=== PATIENT | male | born 1935 | race African-American/Black ===

== ENCOUNTER 2017-05-08 03:42 | Inpatient (IN) ==
[2017-05-08 04:20] LABS: Hematocrit 33.9 VOL% (42.0-52.0); Hemoglobin 10.7 GM/DL (14.0-18.0); Immature Granulocytes % 0.7 %; Immature Granulocytes Absolute 0.04 #; Lymphocytes # 0.4 10*3/uL (1.4-4.0); Lymphocytes % 6.7 % (21.2-54.2); Mean Corpuscular HGB Conc 31.6 GM/DL (32-36); Mean Corpuscular Hemoglobin 24 PG (27-34); Mean Platelet Volume 10.9 FL (9.6-12.0); Monocytes # 0.5 10*3/uL (0.11-0.8); Monocytes % 9.1 % (1.7-12.7); NRBC # 0.05 10*3/uL; Neutrophils # 4.7 10*3/uL (1.4-7.4); Neutrophils % 83.5 % (38.7-73.9); Platelet Count 66 T/CUMM (130-400); Red Blood Count 4.46 MC/CUMM (3.8-5.5); Red Cell Distribution Width 16.3 % (9.3-17.3); White Blood Count 5.6 T/CUMM (4-12)
[2017-05-08 04:31] LABS: INR 1.4; PT Patient Result 14.6 SECS; Partial Thromboplastin Time 27.5 SECS (0-40)
[2017-05-08 04:37] LABS: Albumin 3.6 G/DL (3.4-5.0); Bilirubin,Total 1.2 MG/DL (0.2-1.0); CKMB % 3.2 %; Calcium 8.6 MG/DL (8.5-10.1); Osmolality,Calculated 257.4 MOS/KG (273-304); Potassium 4.5 MMOL/L (3.5-5.1); Total Protein 7.9 G/DL (6.4-8.3)
[2017-05-08 04:39] LABS: Troponin I Only 0.046 NG/ML (0.00-0.045)
[2017-05-08 04:43] LABS: Band Neutrophils 5 % (0-10); Lymphocytes 6 % (20-55); Nucleated Red Blood Cells 2 (0-5); Segmented Neutrophils 83 % (50-85); Total Cells Counted 100
[2017-05-08 04:44] LABS: Anisocytosis 1+; Poikilocytosis 1+; Polychromasia 1+
[2017-05-08] MEDS ORDERED: FUROSEMIDE 40 MG/4 ML VIAL IV STA (05:12)
[2017-05-08] MEDS ORDERED: ASPIRIN 325 MG TABLET PO STA (05:12)
[2017-05-08] MEDS ORDERED: ASPIRIN 325 MG TABLET ONE (05:30)
[2017-05-08] MEDS ORDERED: FUROSEMIDE 40 MG/4 ML VIAL ONE (05:30)
[2017-05-08] MEDS ORDERED: NITROGLYCERIN SL 0.4 MG TABLET SL PRN (08:16)
[2017-05-08] MEDS ORDERED: MORPHINE 2 MG/1 ML SYRINGE IV PRN (08:16)
[2017-05-08] MEDS ORDERED: ONDANSETRON 4 MG/2 ML VIAL IV PRN (08:16)
[2017-05-08] MEDS ORDERED: ACETAMINOPHEN 325 MG TABLET PO PRN (08:16)
[2017-05-08 09:10] LABS: Magnesium 2.2 MG/DL (1.8-2.4); Risk Ratio 1.63
[2017-05-08] MEDS: LOSARTAN 50 MG TABLET PO SCH (09:53)
[2017-05-08] MEDS: DOCUSATE SODIUM 100 MG CAPSULE PO SCH ×2 (09:53→22:20)
[2017-05-08] MEDS: ASPIRIN EC 81 MG TABLET PO SCH (09:53)
[2017-05-08] MEDS: TAMSULOSIN 0.4 MG CAPSULE PO SCH (09:54)
[2017-05-08] MEDS: PANTOPRAZOLE 40 MG TABLET PO SCH (09:54)
[2017-05-08] MEDS: PRAVASTATIN 20 MG TABLET PO SCH (09:54)
[2017-05-08] MEDS: NITROGLYCERIN 2% OINT 1 INCH/GM PACK TOP SCH ×2 (09:59→22:20)
[2017-05-08] MEDS: FUROSEMIDE 40 MG/4 ML VIAL IV SCH ×2 (10:00→17:43)
[2017-05-08 14:00] LABS: Calcium 8.5 MG/DL (8.5-10.1); Osmolality,Calculated 262.9 MOS/KG (273-304); Potassium 3.8 MMOL/L (3.5-5.1)
[2017-05-08] MEDS ORDERED: INFLUENZA VIRUS VACCINE 0.5 ML SYRINGE IM ONE (15:29)
[2017-05-08] MEDS ORDERED: LATANOPROST 0.005% OPH SOLN 2.5 ML BOTTLE BOTH EYES SCH (21:00)
[2017-05-09 05:22] LABS: Basophils % 0.2 % (0.0-0.8); Eosinophils # 0.1 10*3/uL (0.0-0.87); Eosinophils % 1.3 % (0.00-10.9); Hematocrit 33.6 VOL% (42.0-52.0); Hemoglobin 10.6 GM/DL (14.0-18.0); Immature Granulocytes % 0.6 %; Immature Granulocytes Absolute 0.03 #; Lymphocytes # 0.8 10*3/uL (1.4-4.0); Lymphocytes % 16.4 % (21.2-54.2); Mean Corpuscular HGB Conc 31.5 GM/DL (32-36); Mean Corpuscular Hemoglobin 24 PG (27-34); Mean Platelet Volume 10.3 FL (9.6-12.0); Monocytes % 19.9 % (1.7-12.7); NRBC # 0.06 10*3/uL; Neutrophils # 2.9 10*3/uL (1.4-7.4); Neutrophils % 61.6 % (38.7-73.9); Red Blood Count 4.42 MC/CUMM (3.8-5.5); Red Cell Distribution Width 16.2 % (9.3-17.3); White Blood Count 4.8 T/CUMM (4-12)
[2017-05-09 05:29] LABS: Platelet Count 78 T/CUMM (130-400)
[2017-05-09 05:50] LABS: Albumin 3.2 G/DL (3.4-5.0); Bilirubin,Direct 0.4 MG/DL (0.0-0.20); Bilirubin,Indirect 0.7 MG/DL (0.0-1.0); Bilirubin,Total 1.1 MG/DL (0.2-1.0); Calcium 7.8 MG/DL (8.5-10.1); Magnesium 2.1 MG/DL (1.8-2.4); Osmolality,Calculated 262.8 MOS/KG (273-304); Potassium 3.6 MMOL/L (3.5-5.1); Total Protein 7.2 G/DL (6.4-8.3)
[2017-05-09 06:01] LABS: Eosinophils 3 % (0-10); Lymphocytes 14 % (20-55); Myelocytes 1 %; Nucleated Red Blood Cells 3 (0-5); Segmented Neutrophils 70 % (50-85); Total Cells Counted 100
[2017-05-09 06:03] LABS: Hypochromasia 1+; Platelet Estimate Decreased; Polychromasia Few; Target Cells Few
[2017-05-09] MEDS: ASPIRIN EC 81 MG TABLET PO SCH (09:06)
[2017-05-09] MEDS: PRAVASTATIN 20 MG TABLET PO SCH (09:06)
[2017-05-09] MEDS: LOSARTAN 50 MG TABLET PO SCH (09:06)
[2017-05-09] MEDS: PANTOPRAZOLE 40 MG TABLET PO SCH (09:06)
[2017-05-09] MEDS: TAMSULOSIN 0.4 MG CAPSULE PO SCH (09:06)
[2017-05-09] MEDS: DOCUSATE SODIUM 100 MG CAPSULE PO SCH (09:06)
[2017-05-09] MEDS: FUROSEMIDE 40 MG/4 ML VIAL IV SCH ×2 (09:08→16:10)
[2017-05-09] MEDS: NITROGLYCERIN 2% OINT 1 INCH/GM PACK TOP SCH (09:10)
[2017-05-09 16:57] VITALS: BP 114/67
== END 2017-05-09 17:30 | disposition home or self-care (01) | DRG 293 ==
LOC: N.ED 03:42 → N.EDINP 06:04 → SUATTDRO 06:04 → N.3E 06:18
PROVIDERS: ADMIT Internal Medicine; ATTEND Internal Medicine

== ENCOUNTER 2018-02-14 07:17 | Observation (INO) ==
[2018-02-14] MEDS ORDERED: FUROSEMIDE 100 MG/10 ML VIAL IV STA (07:50)
[2018-02-14 08:12] LABS: Eosinophils % 0.4 % (0.00-10.9); Hemoglobin 10.3 GM/DL (14.0-18.0); Immature Granulocytes % 0.4 %; Immature Granulocytes Absolute 0.01 #; Lymphocytes # 0.3 10*3/uL (1.4-4.0); Lymphocytes % 10.6 % (21.2-54.2); Mean Corpuscular HGB Conc 31.2 GM/DL (32-36); Mean Corpuscular Hemoglobin 24 PG (27-34); Mean Corpuscular Volume 77.3 FL (87-102); Mean Platelet Volume 10.7 FL (9.6-12.0); Monocytes # 0.3 10*3/uL (0.11-0.8); Neutrophils # 2.2 10*3/uL (1.4-7.4); Neutrophils % 76.6 % (38.7-73.9); Red Blood Count 4.27 MC/CUMM (3.8-5.5); Red Cell Distribution Width 18.2 % (9.3-17.3); White Blood Count 2.8 T/CUMM (4-12)
[2018-02-14 08:15] LABS: Platelet Count 84 T/CUMM (130-400)
[2018-02-14 08:20] LABS: INR 1.2; PT Patient Result 12.6 SECS; Partial Thromboplastin Time 30.1 SECS (0-40)
[2018-02-14 08:30] LABS: Hypochromasia 1+; Ovalocytes Slight; Platelet Estimate Decreased
[2018-02-14 08:45] LABS: Albumin 3.5 G/DL (3.4-5.0); Calcium 8.6 MG/DL (8.5-10.1); Osmolality,Calculated 285.4 MOS/KG (273-304); Potassium 4.3 MMOL/L (3.5-5.1); Total Protein 7.1 G/DL (6.4-8.3)
[2018-02-14 08:52] LABS: Apearance,Urine CLEAR (Clear); Bacteria,Urine Occasional /HPF (Few); Bilirubin,Urine Negative (Negative); Blood, Urine Negative (Negative); Glucose,Urine (UA) Negative (Negative); Ketones,Urine Negative (Negative); Mucus,Urine Occasional /LPF (Occasional); Nitrite,Urine Negative (Negative); Protein,Urine Negative; RBC,Urine <1 /HPF (0-4); Urine Color Yellow (Yellow); Urine Urobilinogen < 2.0 EU/DL (0.2-1.0); WBC,Urine 14 /HPF (0-6)
[2018-02-14] MEDS ORDERED: ACETAMINOPHEN 325 MG TABLET PO PRN (12:20)
[2018-02-14] MEDS ORDERED: ONDANSETRON 4 MG/2 ML VIAL IV PRN (12:20)
[2018-02-14] MEDS ORDERED: DOCUSATE SODIUM 100 MG CAPSULE PO PRN (12:20)
[2018-02-14] MEDS: ENOXAPARIN 40 MG/0.4 ML SYRINGE SUBCUT SCH (12:36)
[2018-02-14] MEDS ORDERED: FUROSEMIDE 40 MG/4 ML VIAL IV SCH (16:00)
[2018-02-14] MEDS: FUROSEMIDE 40 MG/4 ML VIAL IV SCH (17:07)
[2018-02-14] MEDS: POTASSIUM CHLORIDE 20 MEQ TABLET PO SCH (21:23)
[2018-02-14] MEDS: NORTRIPTYLINE 10 MG CAPSULE PO SCH (21:23)
[2018-02-14] MEDS: LATANOPROST 0.005% OPH SOLN 2.5 ML BOTTLE BOTH EYES SCH (21:24)
[2018-02-15 03:50] LABS: Basophils % 0.7 % (0.0-0.8); Eosinophils # 0.1 10*3/uL (0.0-0.87); Eosinophils % 2.3 % (0.00-10.9); Hematocrit 34.1 VOL% (42.0-52.0); Hemoglobin 10.1 GM/DL (14.0-18.0); Immature Granulocytes % 0.3 %; Immature Granulocytes Absolute 0.01 #; Lymphocytes # 0.5 10*3/uL (1.4-4.0); Lymphocytes % 17.6 % (21.2-54.2); Mean Corpuscular HGB Conc 29.6 GM/DL (32-36); Mean Corpuscular Hemoglobin 24 PG (27-34); Mean Corpuscular Volume 79.9 FL (87-102); Mean Platelet Volume 10.6 FL (9.6-12.0); Monocytes # 0.5 10*3/uL (0.11-0.8); Monocytes % 16.6 % (1.7-12.7); Neutrophils # 1.9 10*3/uL (1.4-7.4); Neutrophils % 62.5 % (38.7-73.9); Platelet Count 72 T/CUMM (130-400); Red Blood Count 4.27 MC/CUMM (3.8-5.5); Red Cell Distribution Width 18.1 % (9.3-17.3); White Blood Count 3.1 T/CUMM (4-12)
[2018-02-15 04:23] LABS: Calcium 8.7 MG/DL (8.5-10.1); Osmolality,Calculated 285.3 MOS/KG (273-304); Potassium 4.2 MMOL/L (3.5-5.1); Thyroid Stimulating Hormone 0.488 uIU/ml (0.358-3.74)
[2018-02-15 04:35] LABS: Eosinophils 2 % (0-10); Lymphocytes 19 % (20-55); Platelet Estimate Decreased; Polychromasia Few; Segmented Neutrophils 64 % (50-85); Total Cells Counted 100
[2018-02-15] MEDS: PRAVASTATIN 20 MG TABLET PO SCH (08:34)
[2018-02-15] MEDS: TAMSULOSIN 0.4 MG CAPSULE PO SCH (08:34)
[2018-02-15] MEDS: CHOLECALCIFEROL 1,000 UNIT TABLET PO SCH (08:34)
[2018-02-15] MEDS: ASPIRIN EC 81 MG TABLET PO SCH (08:34)
[2018-02-15] MEDS: LOSARTAN 50 MG TABLET PO SCH (08:34)
[2018-02-15] MEDS: POTASSIUM CHLORIDE 20 MEQ TABLET PO SCH ×2 (08:34→21:17)
[2018-02-15] MEDS: DICYCLOMINE 10 MG CAPSULE PO SCH (08:35)
[2018-02-15] MEDS: PANTOPRAZOLE 40 MG TABLET PO SCH (08:35)
[2018-02-15] MEDS: FUROSEMIDE 40 MG/4 ML VIAL IV SCH ×2 (08:38→18:00)
[2018-02-15] MEDS: cefTRIAXone 1,000 MG in SYRINGE 1 EACH IV SCH (13:18)
[2018-02-15] MEDS: ENOXAPARIN 40 MG/0.4 ML SYRINGE SUBCUT SCH (13:35)
[2018-02-15] MEDS: LATANOPROST 0.005% OPH SOLN 2.5 ML BOTTLE BOTH EYES SCH (21:17)
[2018-02-15] MEDS: NORTRIPTYLINE 10 MG CAPSULE PO SCH (21:17)
[2018-02-16 03:06] LABS: Eosinophils # 0.2 10*3/uL (0.0-0.87); Eosinophils % 4.9 % (0.00-10.9); Hematocrit 34.7 VOL% (42.0-52.0); Hemoglobin 10.5 GM/DL (14.0-18.0); Immature Granulocytes % 0.3 %; Immature Granulocytes Absolute 0.01 #; Lymphocytes # 0.8 10*3/uL (1.4-4.0); Lymphocytes % 25.3 % (21.2-54.2); Mean Corpuscular HGB Conc 30.3 GM/DL (32-36); Mean Corpuscular Hemoglobin 24 PG (27-34); Mean Corpuscular Volume 78.7 FL (87-102); Mean Platelet Volume 11.2 FL (9.6-12.0); Monocytes # 0.5 10*3/uL (0.11-0.8); Monocytes % 16.8 % (1.7-12.7); Neutrophils # 1.6 10*3/uL (1.4-7.4); Neutrophils % 51.7 % (38.7-73.9); Platelet Count 94 T/CUMM (130-400); Red Blood Count 4.41 MC/CUMM (3.8-5.5); Red Cell Distribution Width 17.8 % (9.3-17.3)
[2018-02-16 03:34] LABS: Calcium 8.8 MG/DL (8.5-10.1); Osmolality,Calculated 280.5 MOS/KG (273-304); Potassium 4.2 MMOL/L (3.5-5.1)
[2018-02-16 03:49] LABS: Anisocytosis 2+; Band Neutrophils 5 % (0-10); Eosinophils 5 % (0-10); Hypochromasia 2+; Lymphocytes 26 % (20-55); Macrocytosis 1+; Microcytosis 1+; Ovalocytes 2+; Platelet Estimate Decreased; Polychromasia 1+; Segmented Neutrophils 47 % (50-85); Target Cells Few; Total Cells Counted 100
[2018-02-16] MEDS: FUROSEMIDE 40 MG/4 ML VIAL IV SCH (08:38)
[2018-02-16] MEDS: CHOLECALCIFEROL 1,000 UNIT TABLET PO SCH (09:56)
[2018-02-16] MEDS: FUROSEMIDE 40 MG TABLET PO SCH ×2 (09:57→16:04)
[2018-02-16] MEDS: LOSARTAN 50 MG TABLET PO SCH (09:57)
[2018-02-16] MEDS: SPIRONOLACTONE 25 MG TABLET PO SCH (09:58)
[2018-02-16] MEDS: PRAVASTATIN 20 MG TABLET PO SCH (09:58)
[2018-02-16] MEDS: TAMSULOSIN 0.4 MG CAPSULE PO SCH (09:58)
[2018-02-16] MEDS: ASPIRIN EC 81 MG TABLET PO SCH (09:59)
[2018-02-16] MEDS: POTASSIUM CHLORIDE 20 MEQ TABLET PO SCH ×2 (09:59→20:56)
[2018-02-16] MEDS: DICYCLOMINE 10 MG CAPSULE PO SCH (09:59)
[2018-02-16] MEDS: PANTOPRAZOLE 40 MG TABLET PO SCH (10:01)
[2018-02-16] MEDS ORDERED: BISACODYL 10 MG SUPP RECTAL ONE (10:19)
[2018-02-16] MEDS: POLYETHYLENE GLYCOL POWDER 17 GM PACK PO SCH (10:53)
[2018-02-16] MEDS: ENOXAPARIN 40 MG/0.4 ML SYRINGE SUBCUT SCH (12:04)
[2018-02-16] MEDS: cefTRIAXone 1,000 MG in SYRINGE 1 EACH IV SCH (12:04)
[2018-02-16] MEDS ORDERED: SODIUM PHOSPHATE ENEMA 133 ML BOTTLE RECTAL ONE (16:30)
[2018-02-16] MEDS: LATANOPROST 0.005% OPH SOLN 2.5 ML BOTTLE BOTH EYES SCH (20:56)
[2018-02-16] MEDS: NORTRIPTYLINE 10 MG CAPSULE PO SCH (20:56)
[2018-02-17 07:02] LABS: Basophils % 0.7 % (0.0-0.8); Eosinophils # 0.1 10*3/uL (0.0-0.87); Eosinophils % 4.8 % (0.00-10.9); Hematocrit 35.4 VOL% (42.0-52.0); Hemoglobin 10.7 GM/DL (14.0-18.0); Immature Granulocytes % 0.3 %; Immature Granulocytes Absolute 0.01 #; Lymphocytes # 0.8 10*3/uL (1.4-4.0); Lymphocytes % 27.7 % (21.2-54.2); Mean Corpuscular HGB Conc 30.2 GM/DL (32-36); Mean Corpuscular Hemoglobin 24 PG (27-34); Mean Corpuscular Volume 79.6 FL (87-102); Mean Platelet Volume 10.3 FL (9.6-12.0); Monocytes # 0.5 10*3/uL (0.11-0.8); Monocytes % 16.8 % (1.7-12.7); Neutrophils # 1.5 10*3/uL (1.4-7.4); Neutrophils % 49.7 % (38.7-73.9); Platelet Count 91 T/CUMM (130-400); Red Blood Count 4.45 MC/CUMM (3.8-5.5); Red Cell Distribution Width 17.5 % (9.3-17.3); White Blood Count 2.9 T/CUMM (4-12)
[2018-02-17 07:25] LABS: Atypical Lymphocytes Few; Eosinophils 4 % (0-10); Lymphocytes 25 % (20-55); Segmented Neutrophils 55 % (50-85); Total Cells Counted 100
[2018-02-17 07:26] LABS: Calcium 8.4 MG/DL (8.5-10.1); Hypochromasia 1+; Microcytosis 1+; Osmolality,Calculated 281.4 MOS/KG (273-304); Ovalocytes Slight; Platelet Estimate Decreased; Polychromasia Slight; Potassium 4.4 MMOL/L (3.5-5.1); Target Cells Slight
[2018-02-17 08:09] VITALS: BP 133/82
[2018-02-17] MEDS: DICYCLOMINE 10 MG CAPSULE PO SCH (09:52)
[2018-02-17] MEDS: PANTOPRAZOLE 40 MG TABLET PO SCH (09:52)
[2018-02-17] MEDS: FUROSEMIDE 40 MG TABLET PO SCH (09:52)
[2018-02-17] MEDS: POTASSIUM CHLORIDE 20 MEQ TABLET PO SCH (09:52)
[2018-02-17] MEDS: SPIRONOLACTONE 25 MG TABLET PO SCH (09:52)
[2018-02-17] MEDS: LOSARTAN 50 MG TABLET PO SCH (09:53)
[2018-02-17] MEDS: TAMSULOSIN 0.4 MG CAPSULE PO SCH (09:53)
[2018-02-17] MEDS: PRAVASTATIN 20 MG TABLET PO SCH (09:53)
[2018-02-17] MEDS: CHOLECALCIFEROL 1,000 UNIT TABLET PO SCH (09:53)
[2018-02-17] MEDS: ASPIRIN EC 81 MG TABLET PO SCH (09:53)
[2018-02-17] MEDS: POLYETHYLENE GLYCOL POWDER 17 GM PACK PO SCH (09:53)
[2018-02-17] MEDS: cefTRIAXone 1,000 MG in SYRINGE 1 EACH IV SCH (11:14)
[2018-02-17] MEDS: ENOXAPARIN 40 MG/0.4 ML SYRINGE SUBCUT SCH (11:41)
== END 2018-02-17 12:44 | disposition home or self-care (01) ==
LOC: N.ED 07:17 → N.EDINP 10:22 → INTOOBSV 10:22 → N.2W 11:10 → N.TELES 15:46
PROVIDERS: ADMIT Internal Medicine; ATTEND Internal Medicine

== ENCOUNTER 2018-06-06 12:38 | Inpatient (IN) ==
[2018-06-06 13:39] LABS: INR 1.5; PT Patient Result 15.7 SECS
[2018-06-06 13:54] LABS: Albumin 3.6 G/DL (3.4-5.0); Bilirubin,Total 1.3 MG/DL (0.2-1.0); Calcium 8.7 MG/DL (8.5-10.1); Osmolality,Calculated 265.9 MOS/KG (273-304); Total Protein 7.7 G/DL (6.4-8.3)
[2018-06-06 13:59] LABS: Hematocrit 28.6 VOL% (42.0-52.0); Hemoglobin 8.3 GM/DL (14.0-18.0); Immature Granulocytes % 0.8 %; Immature Granulocytes Absolute 0.03 #; Lymphocytes # 0.2 10*3/uL (1.4-4.0); Lymphocytes % 5.4 % (21.2-54.2); Mean Corpuscular Hemoglobin 23 PG (27-34); Monocytes # 0.7 10*3/uL (0.11-0.8); Monocytes % 17.8 % (1.7-12.7); NRBC # 0.11 10*3/uL; Neutrophils # 2.8 10*3/uL (1.4-7.4); Platelet Count 56 T/CUMM (130-400); Red Blood Count 3.62 MC/CUMM (3.8-5.5); Red Cell Distribution Width 17.6 % (9.3-17.3); White Blood Count 3.7 T/CUMM (4-12)
[2018-06-06 14:08] LABS: Potassium 6.1 MMOL/L (3.5-5.1)
[2018-06-06] MEDS ORDERED: SODIUM BICARBONATE 50 MEQ/50 ML VIAL IV STA (14:21)
[2018-06-06] MEDS ORDERED: DEXTROSE 50% 25 GM/50 ML VIAL IV STA (14:21)
[2018-06-06] MEDS ORDERED: INSULIN REGULAR 100 UNIT/ML IV STA (14:21)
[2018-06-06] MEDS ORDERED: SODIUM BICARBONATE 50 MEQ/50 ML SYRINGE IV STA (14:26)
[2018-06-06] MEDS ORDERED: DEXTROSE 50% 25 GM/50 ML SYRINGE IV ONE (14:28)
[2018-06-06 14:43] LABS: Lymphocytes 5 % (20-55); Segmented Neutrophils 79 % (50-85); Total Cells Counted 100
[2018-06-06 14:50] LABS: Elliptocytes Few; Hypochromasia 1+; Polychromasia Few
[2018-06-06 14:51] LABS: Ovalocytes 1+; Schistocytes 1+
[2018-06-06 14:52] LABS: Anisocytosis 2+; Tear Drop Cells Few
[2018-06-06 14:53] LABS: Helmet Cells Few; Nucleated Red Blood Cells 1 (0-5)
[2018-06-06 14:56] LABS: Acanthocytes Few; Platelet Estimate Decreased
[2018-06-06] MEDS ORDERED: ACETAMINOPHEN 325 MG TABLET PO PRN (15:27)
[2018-06-06] MEDS ORDERED: ONDANSETRON 4 MG/2 ML VIAL IV PRN (15:27)
[2018-06-06] MEDS ORDERED: SODIUM POLYSTYRENE SULFATE 15 GM/60 ML BOTTLE PO STA (15:30)
[2018-06-06] MEDS: SODIUM CHLORIDE 0.9% 1,000 ML IV SCH (17:04)
[2018-06-06] MEDS ORDERED: traMADol 50 MG TABLET PO PRN (18:15)
[2018-06-06] MEDS: LATANOPROST 0.005% OPH SOLN 2.5 ML BOTTLE BOTH EYES SCH (20:50)
[2018-06-07 04:21] LABS: Basophils % 0.3 % (0.0-0.8); Eosinophils % 0.5 % (0.00-10.9); Hematocrit 28.3 VOL% (42.0-52.0); Hemoglobin 8.1 GM/DL (14.0-18.0); Immature Granulocytes % 0.8 %; Immature Granulocytes Absolute 0.03 #; Lymphocytes # 0.3 10*3/uL (1.4-4.0); Lymphocytes % 7.7 % (21.2-54.2); Mean Corpuscular HGB Conc 28.6 GM/DL (32-36); Mean Corpuscular Hemoglobin 23 PG (27-34); Mean Corpuscular Volume 79.1 FL (87-102); Monocytes # 0.7 10*3/uL (0.11-0.8); Monocytes % 18.2 % (1.7-12.7); NRBC # 0.14 10*3/uL; Neutrophils # 2.8 10*3/uL (1.4-7.4); Neutrophils % 72.5 % (38.7-73.9); Red Blood Count 3.58 MC/CUMM (3.8-5.5); Red Cell Distribution Width 17.6 % (9.3-17.3); White Blood Count 3.9 T/CUMM (4-12)
[2018-06-07 04:31] LABS: Platelet Count 68 T/CUMM (130-400)
[2018-06-07] MEDS: SODIUM CHLORIDE 0.9% 1,000 ML IV SCH ×2 (04:37→23:12)
[2018-06-07 04:59] LABS: Albumin 3.4 G/DL (3.4-5.0); Calcium 8.4 MG/DL (8.5-10.1); Osmolality,Calculated 267.7 MOS/KG (273-304); Potassium 5.4 MMOL/L (3.5-5.1); Risk Ratio 1.59; Thyroid Stimulating Hormone 0.525 uIU/ml (0.358-3.74); Total Protein 7.4 G/DL (6.4-8.3); VLDL CHOLESTEROL 6.4 MG/DL
[2018-06-07 05:01] LABS: Lymphocytes 8 % (20-55); Platelet Estimate Decreased; Segmented Neutrophils 77 % (50-85); Total Cells Counted 100
[2018-06-07 05:02] LABS: Polychromasia Few
[2018-06-07] MEDS ORDERED: PANTOPRAZOLE 40 MG TABLET PO SCH (09:00)
[2018-06-07] MEDS: TAMSULOSIN 0.4 MG CAPSULE PO SCH (09:26)
[2018-06-07] MEDS: LACTULOSE 20 GM/30 ML UDCUP PO PRN (09:26)
[2018-06-07] MEDS: DOCUSATE SODIUM 100 MG CAPSULE PO PRN (09:26)
[2018-06-07] MEDS: ASPIRIN EC 81 MG TABLET PO SCH (09:26)
[2018-06-07] MEDS: LEVOFLOXACIN INJ 500 MG in PREMIX 1 EACH IV SCH (15:12)
[2018-06-07] MEDS: BENZONATATE 100 MG CAPSULE PO SCH ×2 (15:12→20:26)
[2018-06-07] MEDS: LATANOPROST 0.005% OPH SOLN 2.5 ML BOTTLE BOTH EYES SCH (20:26)
[2018-06-08 04:46] LABS: Hematocrit 27.4 VOL% (42.0-52.0); Immature Granulocytes % 0.6 %; Immature Granulocytes Absolute 0.03 #; Lymphocytes # 0.2 10*3/uL (1.4-4.0); Lymphocytes % 4.9 % (21.2-54.2); Mean Corpuscular HGB Conc 29.2 GM/DL (32-36); Mean Corpuscular Hemoglobin 23 PG (27-34); Mean Corpuscular Volume 78.3 FL (87-102); Monocytes # 0.7 10*3/uL (0.11-0.8); Monocytes % 14.6 % (1.7-12.7); NRBC # 0.15 10*3/uL; Neutrophils # 3.9 10*3/uL (1.4-7.4); Neutrophils % 79.9 % (38.7-73.9); Red Cell Distribution Width 17.4 % (9.3-17.3); White Blood Count 4.9 T/CUMM (4-12)
[2018-06-08 04:52] LABS: Platelet Count 39 T/CUMM (130-400)
[2018-06-08 05:13] LABS: Bilirubin,Total 1.8 MG/DL (0.2-1.0); Calcium 8.3 MG/DL (8.5-10.1); Osmolality,Calculated 260.1 MOS/KG (273-304); Potassium 5.2 MMOL/L (3.5-5.1)
[2018-06-08 05:26] LABS: Band Neutrophils 1 % (0-10); Hypochromasia 1+; Lymphocytes 6 % (20-55); Nucleated Red Blood Cells 3 (0-5); Ovalocytes Slight; Platelet Estimate Decreased; Segmented Neutrophils 82 % (50-85); Total Cells Counted 100
[2018-06-08 05:42] LABS: Albumin 3.1 G/DL (3.4-5.0); Bilirubin,Direct 0.6 MG/DL (0.0-0.20); Bilirubin,Indirect 0.5 MG/DL (0.0-1.0); Bilirubin,Total 1.1 MG/DL (0.2-1.0); Total Protein 7.1 G/DL (6.4-8.3)
[2018-06-08 05:58] LABS: Hepatitis A Ab IgM Quant 0.25 Index; Hepatitis A Ab IgM Result Negative (Negative); Hepatitis B Core IgM Quant 0.16 Index; Hepatitis B Core IgM Result Negative (Negative); Hepatitis B Surface Ag Quant < 0.10 Index; Hepatitis B Surface Ag Result Negative (Negative); Hepatitis C Virus Ab Quant 0.15 Index; Hepatitis C Virus Ab Result Negative (Negative)
[2018-06-08 07:41] LABS: INR 1.6; PT Patient Result 16.9 SECS; Partial Thromboplastin Time 31.7 SECS (0-40)
[2018-06-08] MEDS: ASPIRIN EC 81 MG TABLET PO SCH (10:30)
[2018-06-08] MEDS: BENZONATATE 100 MG CAPSULE PO SCH ×3 (10:30→20:30)
[2018-06-08] MEDS: TAMSULOSIN 0.4 MG CAPSULE PO SCH (10:30)
[2018-06-08] MEDS: PANTOPRAZOLE 40 MG TABLET PO SCH ×2 (10:30→20:30)
[2018-06-08] MEDS: SODIUM CHLORIDE 0.9% 1,000 ML IV SCH ×2 (12:21→14:20)
[2018-06-08] MEDS: LEVOFLOXACIN INJ 500 MG in PREMIX 1 EACH IV SCH (13:19)
[2018-06-08] MEDS: ACETYLCYSTEINE 600 MG CAPSULE PO SCH ×2 (16:20→20:30)
[2018-06-08] MEDS: DOXYCYCLINE HYCLATE 100 MG CAPSULE PO SCH (20:30)
[2018-06-08] MEDS: LATANOPROST 0.005% OPH SOLN 2.5 ML BOTTLE BOTH EYES SCH (20:31)
[2018-06-09] MEDS: SODIUM CHLORIDE 0.9% 1,000 ML IV SCH (01:15)
[2018-06-09 04:27] LABS: Hematocrit 28.8 VOL% (42.0-52.0); Hemoglobin 8.5 GM/DL (14.0-18.0); Immature Granulocytes % 0.7 %; Immature Granulocytes Absolute 0.05 #; Lymphocytes # 0.1 10*3/uL (1.4-4.0); Lymphocytes % 1.9 % (21.2-54.2); Mean Corpuscular HGB Conc 29.5 GM/DL (32-36); Mean Corpuscular Hemoglobin 23 PG (27-34); Mean Corpuscular Volume 77.6 FL (87-102); Mean Platelet Volume 12.2 FL (9.6-12.0); Monocytes # 0.9 10*3/uL (0.11-0.8); Monocytes % 13.3 % (1.7-12.7); NRBC # 0.26 10*3/uL; Neutrophils # 5.8 10*3/uL (1.4-7.4); Neutrophils % 84.1 % (38.7-73.9); Red Blood Count 3.71 MC/CUMM (3.8-5.5); Red Cell Distribution Width 17.7 % (9.3-17.3); White Blood Count 6.8 T/CUMM (4-12)
[2018-06-09 04:35] LABS: Platelet Count 63 T/CUMM (130-400)
[2018-06-09 04:57] LABS: Albumin 3.4 G/DL (3.4-5.0); Bilirubin,Direct 1.14 MG/DL (0.0-0.20); Bilirubin,Indirect 1.7 MG/DL (0.0-1.0); Bilirubin,Total 2.8 MG/DL (0.2-1.0); Total Protein 7.5 G/DL (6.4-8.3)
[2018-06-09 04:58] LABS: Albumin 3.4 G/DL (3.4-5.0); Bilirubin,Total 2.1 MG/DL (0.2-1.0); Calcium 8.7 MG/DL (8.5-10.1); Ferritin 27.5 ng/ml (26-388); Osmolality,Calculated 262.9 MOS/KG (273-304); Potassium 5.3 MMOL/L (3.5-5.1); Total Protein 7.4 G/DL (6.4-8.3)
[2018-06-09 05:05] LABS: Folate 11.1 NG/ML (5.4-24.0); Vitamin B12 > 2000 PG/ML (211-911)
[2018-06-09 05:13] LABS: Band Neutrophils 5 % (0-10); Hypochromasia 2+; Lymphocytes 4 % (20-55); Platelet Estimate Decreased; Segmented Neutrophils 77 % (50-85); Total Cells Counted 100
[2018-06-09 07:23] LABS: Sedimentation Rate-Westergren 32 MM/HR (0-20)
[2018-06-09 09:26] LABS: Hemoglobin A1 (Alkaline) 97.4 % (96.5-98.5); Hemoglobin A2 (Alkaline) 2.6 % (1.5-3.5)
[2018-06-09] MEDS: ASPIRIN EC 81 MG TABLET PO SCH (09:38)
[2018-06-09] MEDS: ACETYLCYSTEINE 600 MG CAPSULE PO SCH ×2 (09:38→21:02)
[2018-06-09] MEDS: TAMSULOSIN 0.4 MG CAPSULE PO SCH (09:38)
[2018-06-09] MEDS: DOXYCYCLINE HYCLATE 100 MG CAPSULE PO SCH ×2 (09:38→21:02)
[2018-06-09] MEDS: PANTOPRAZOLE 40 MG TABLET PO SCH ×2 (09:38→19:58)
[2018-06-09] MEDS: BENZONATATE 100 MG CAPSULE PO SCH ×3 (09:38→21:02)
[2018-06-09] MEDS: FUROSEMIDE 40 MG TABLET PO SCH ×2 (09:43→17:17)
[2018-06-09] MEDS: FERROUS SULFATE 325 MG TABLET PO SCH (09:43)
[2018-06-09 13:52] LABS: Apearance,Urine Slightly Hazy (Clear); Bacteria,Urine Occasional /HPF (Few); Bilirubin,Urine Negative (Negative); Blood, Urine Small mg/dL (Negative); Glucose,Urine (UA) Negative (Negative); Ketones,Urine Negative (Negative); Mucus,Urine Occasional /LPF (Occasional); Nitrite,Urine Negative (Negative); Protein,Urine 30 MG/DL; RBC,Urine 12 /HPF (0-4); Squamous Epithelial Cell,Urine Occasional /HPF (0-10); Urine Color Yellow (Yellow); Urine Specific Gravity 1.024 (1.001-1.035); WBC,Urine 116 /HPF (0-6)
[2018-06-09] MEDS: LATANOPROST 0.005% OPH SOLN 2.5 ML BOTTLE BOTH EYES SCH (21:03)
[2018-06-10] MEDS: PANTOPRAZOLE 40 MG TABLET PO SCH ×2 (06:04→18:58)
[2018-06-10 06:11] LABS: Basophils % 0.1 % (0.0-0.8); Hematocrit 28.5 VOL% (42.0-52.0); Hemoglobin 8.3 GM/DL (14.0-18.0); Immature Granulocytes % 0.8 %; Immature Granulocytes Absolute 0.06 #; Lymphocytes # 0.3 10*3/uL (1.4-4.0); Lymphocytes % 3.6 % (21.2-54.2); Mean Corpuscular HGB Conc 29.1 GM/DL (32-36); Mean Corpuscular Hemoglobin 22 PG (27-34); Mean Corpuscular Volume 76.8 FL (87-102); Monocytes # 0.9 10*3/uL (0.11-0.8); Monocytes % 11.3 % (1.7-12.7); NRBC # 0.27 10*3/uL; Neutrophils # 6.5 10*3/uL (1.4-7.4); Neutrophils % 84.2 % (38.7-73.9); Platelet Count 60 T/CUMM (130-400); Red Blood Count 3.71 MC/CUMM (3.8-5.5); Red Cell Distribution Width 17.8 % (9.3-17.3); White Blood Count 7.8 T/CUMM (4-12)
[2018-06-10 06:36] LABS: Albumin 2.9 G/DL (3.4-5.0); Albumin 3.2 G/DL (3.4-5.0); Bilirubin,Direct 1.28 MG/DL (0.0-0.20); Bilirubin,Indirect 1.8 MG/DL (0.0-1.0); Bilirubin,Total 3.1 MG/DL (0.2-1.0); Calcium 8.6 MG/DL (8.5-10.1); Osmolality,Calculated 260.9 MOS/KG (273-304); Potassium 4.8 MMOL/L (3.5-5.1); Total Protein 7.1 G/DL (6.4-8.3); Total Protein 7.2 G/DL (6.4-8.3)
[2018-06-10 06:48] LABS: Band Neutrophils 1 % (0-10); Hypochromasia 1+; Lymphocytes 5 % (20-55); Nucleated Red Blood Cells 7 (0-5); Segmented Neutrophils 84 % (50-85); Total Cells Counted 100
[2018-06-10 06:49] LABS: Microcytosis 1+; Ovalocytes Few; Target Cells Slight
[2018-06-10 06:50] LABS: Platelet Estimate Decreased
[2018-06-10] MEDS: FUROSEMIDE 40 MG TABLET PO SCH ×2 (08:03→17:03)
[2018-06-10] MEDS: FERROUS SULFATE 325 MG TABLET PO SCH (08:04)
[2018-06-10] MEDS: BENZONATATE 100 MG CAPSULE PO SCH ×3 (08:04→20:19)
[2018-06-10] MEDS: DOXYCYCLINE HYCLATE 100 MG CAPSULE PO SCH (08:04)
[2018-06-10] MEDS: DOCUSATE SODIUM 100 MG CAPSULE PO PRN (08:04)
[2018-06-10] MEDS: TAMSULOSIN 0.4 MG CAPSULE PO SCH (08:04)
[2018-06-10] MEDS: ASPIRIN EC 81 MG TABLET PO SCH (08:05)
[2018-06-10] MEDS: ACETYLCYSTEINE 600 MG CAPSULE PO SCH ×2 (08:11→20:19)
[2018-06-10] MEDS ORDERED: TUBERCULIN SKIN TEST 0.1 ML SYRINGE INTRADERM ONE (15:07)
[2018-06-10] MEDS: ERTAPENEM 1,000 MG in SODIUM CHLORIDE 0.9% 100 ML IV SCH (17:02)
[2018-06-10] MEDS: LACTULOSE 20 GM/30 ML UDCUP PO PRN (17:03)
[2018-06-10] MEDS: LATANOPROST 0.005% OPH SOLN 2.5 ML BOTTLE BOTH EYES SCH (20:20)
[2018-06-11] MEDS: PANTOPRAZOLE 40 MG TABLET PO SCH ×2 (06:27→18:42)
[2018-06-11 06:37] LABS: Albumin 2.8 G/DL (3.4-5.0); Bilirubin,Direct 0.87 MG/DL (0.0-0.20); Bilirubin,Indirect 1.1 MG/DL (0.0-1.0); Total Protein 6.7 G/DL (6.4-8.3)
[2018-06-11] MEDS: BENZONATATE 100 MG CAPSULE PO SCH ×3 (08:40→20:21)
[2018-06-11] MEDS: FERROUS SULFATE 325 MG TABLET PO SCH (08:40)
[2018-06-11] MEDS: ACETYLCYSTEINE 600 MG CAPSULE PO SCH (08:40)
[2018-06-11] MEDS: FUROSEMIDE 40 MG TABLET PO SCH ×2 (08:40→17:04)
[2018-06-11] MEDS: TAMSULOSIN 0.4 MG CAPSULE PO SCH (08:40)
[2018-06-11] MEDS: ASPIRIN EC 81 MG TABLET PO SCH (08:40)
[2018-06-11] MEDS: guaiFENesin/DM ER 600-30 MG TABLET PO SCH ×2 (13:06→20:21)
[2018-06-11] MEDS: ERTAPENEM 1,000 MG in SODIUM CHLORIDE 0.9% 100 ML IV SCH (13:06)
[2018-06-11] MEDS: LATANOPROST 0.005% OPH SOLN 2.5 ML BOTTLE BOTH EYES SCH (20:21)
[2018-06-12 06:03] LABS: Eosinophils # 0.2 10*3/uL (0.0-0.87); Eosinophils % 4.5 % (0.00-10.9); Hematocrit 28.9 VOL% (42.0-52.0); Hemoglobin 8.3 GM/DL (14.0-18.0); Immature Granulocytes % 0.5 %; Immature Granulocytes Absolute 0.02 #; Lymphocytes # 0.7 10*3/uL (1.4-4.0); Lymphocytes % 15.3 % (21.2-54.2); Mean Corpuscular HGB Conc 28.7 GM/DL (32-36); Mean Corpuscular Hemoglobin 22 PG (27-34); Mean Corpuscular Volume 77.5 FL (87-102); Mean Platelet Volume 10.2 FL (9.6-12.0); Monocytes % 23.8 % (1.7-12.7); NRBC # 0.16 10*3/uL; Neutrophils # 2.4 10*3/uL (1.4-7.4); Neutrophils % 55.9 % (38.7-73.9); Platelet Count 83 T/CUMM (130-400); Red Blood Count 3.73 MC/CUMM (3.8-5.5); Red Cell Distribution Width 18.1 % (9.3-17.3); White Blood Count 4.2 T/CUMM (4-12)
[2018-06-12 06:06] LABS: INR 1.4; PT Patient Result 15.3 SECS
[2018-06-12 06:15] LABS: Calcium 8.1 MG/DL (8.5-10.1); Osmolality,Calculated 261.7 MOS/KG (273-304); Potassium 3.9 MMOL/L (3.5-5.1)
[2018-06-12 06:23] LABS: Albumin 2.8 G/DL (3.4-5.0); Bilirubin,Direct 0.66 MG/DL (0.0-0.20); Bilirubin,Indirect 1.6 MG/DL (0.0-1.0); Bilirubin,Total 2.3 MG/DL (0.2-1.0); Total Protein 6.4 G/DL (6.4-8.3)
[2018-06-12] MEDS: PANTOPRAZOLE 40 MG TABLET PO SCH ×2 (06:26→18:18)
[2018-06-12 08:00] LABS: Anisocytosis 1+; Band Neutrophils 1 % (0-10); Eosinophils 3 % (0-10); Lymphocytes 20 % (20-55); Macrocytosis 1+; Nucleated Red Blood Cells 6 (0-5); Platelet Estimate Decreased; Poikilocytosis Slight; Segmented Neutrophils 68 % (50-85); Total Cells Counted 100
[2018-06-12 08:01] LABS: Hypochromasia 1+; Smudge Cells Few; Target Cells Few
[2018-06-12] MEDS: ASPIRIN EC 81 MG TABLET PO SCH (08:24)
[2018-06-12] MEDS: BENZONATATE 100 MG CAPSULE PO SCH ×3 (08:24→21:19)
[2018-06-12] MEDS: TAMSULOSIN 0.4 MG CAPSULE PO SCH (08:24)
[2018-06-12] MEDS: FERROUS SULFATE 325 MG TABLET PO SCH (08:24)
[2018-06-12] MEDS: guaiFENesin/DM ER 600-30 MG TABLET PO SCH ×2 (08:24→21:19)
[2018-06-12] MEDS: FUROSEMIDE 40 MG TABLET PO SCH ×2 (08:24→18:18)
[2018-06-12] MEDS: ERTAPENEM 1,000 MG in SODIUM CHLORIDE 0.9% 100 ML IV SCH (11:46)
[2018-06-12] MEDS: LATANOPROST 0.005% OPH SOLN 2.5 ML BOTTLE BOTH EYES SCH (21:19)
[2018-06-13 04:35] LABS: Eosinophils # 0.4 10*3/uL (0.0-0.87); Eosinophils % 10.2 % (0.00-10.9); Hematocrit 30.5 VOL% (42.0-52.0); Immature Granulocytes % 0.8 %; Immature Granulocytes Absolute 0.03 #; Lymphocytes # 0.6 10*3/uL (1.4-4.0); Lymphocytes % 15.2 % (21.2-54.2); Mean Corpuscular HGB Conc 29.5 GM/DL (32-36); Mean Corpuscular Hemoglobin 23 PG (27-34); Mean Platelet Volume 10.8 FL (9.6-12.0); Monocytes # 0.8 10*3/uL (0.11-0.8); Monocytes % 21.8 % (1.7-12.7); NRBC # 0.09 10*3/uL; Neutrophils # 1.9 10*3/uL (1.4-7.4); Red Blood Count 3.96 MC/CUMM (3.8-5.5); Red Cell Distribution Width 18.2 % (9.3-17.3); White Blood Count 3.6 T/CUMM (4-12)
[2018-06-13 04:45] LABS: Platelet Count 73 T/CUMM (130-400)
[2018-06-13 05:05] LABS: Calcium 7.8 MG/DL (8.5-10.1); Osmolality,Calculated 263.4 MOS/KG (273-304); Potassium 3.6 MMOL/L (3.5-5.1)
[2018-06-13 05:08] LABS: Albumin 2.6 G/DL (3.4-5.0); Bilirubin,Direct 0.55 MG/DL (0.0-0.20); Bilirubin,Indirect 0.6 MG/DL (0.0-1.0); Bilirubin,Total 1.1 MG/DL (0.2-1.0); Eosinophils 11 % (0-10); Lymphocytes 10 % (20-55); Nucleated Red Blood Cells 2 (0-5); Segmented Neutrophils 62 % (50-85); Total Cells Counted 100; Total Protein 6.3 G/DL (6.4-8.3)
[2018-06-13 05:10] LABS: Hypochromasia 1+; Ovalocytes Slight; Platelet Estimate Decreased
[2018-06-13 05:11] LABS: Target Cells Few
[2018-06-13 05:12] LABS: Macrocytosis Slight; Polychromasia Slight
[2018-06-13] MEDS: PANTOPRAZOLE 40 MG TABLET PO SCH ×2 (06:15→18:03)
[2018-06-13] MEDS: FUROSEMIDE 40 MG TABLET PO SCH ×2 (09:06→16:25)
[2018-06-13] MEDS: ASPIRIN EC 81 MG TABLET PO SCH (09:06)
[2018-06-13] MEDS: guaiFENesin/DM ER 600-30 MG TABLET PO SCH ×2 (09:06→20:31)
[2018-06-13] MEDS: FERROUS SULFATE 325 MG TABLET PO SCH (09:06)
[2018-06-13] MEDS: TAMSULOSIN 0.4 MG CAPSULE PO SCH (09:06)
[2018-06-13] MEDS: BENZONATATE 100 MG CAPSULE PO SCH ×3 (09:08→20:31)
[2018-06-13] MEDS: ERTAPENEM 1,000 MG in SODIUM CHLORIDE 0.9% 100 ML IV SCH (10:59)
[2018-06-13] MEDS: LATANOPROST 0.005% OPH SOLN 2.5 ML BOTTLE BOTH EYES SCH (20:31)
[2018-06-14 06:11] LABS: Osmolality,Calculated 264.2 MOS/KG (273-304); Potassium 3.5 MMOL/L (3.5-5.1)
[2018-06-14] MEDS ORDERED: traMADol 50 MG TABLET PO PRN (06:27)
[2018-06-14 06:34] LABS: Eosinophils # 0.4 10*3/uL (0.0-0.87); Eosinophils % 8.1 % (0.00-10.9); Hemoglobin 9.1 GM/DL (14.0-18.0); Immature Granulocytes % 0.6 %; Immature Granulocytes Absolute 0.03 #; Lymphocytes # 0.5 10*3/uL (1.4-4.0); Lymphocytes % 10.2 % (21.2-54.2); Mean Corpuscular HGB Conc 28.4 GM/DL (32-36); Mean Corpuscular Hemoglobin 22 PG (27-34); Mean Corpuscular Volume 77.5 FL (87-102); Mean Platelet Volume 10.7 FL (9.6-12.0); Monocytes # 0.9 10*3/uL (0.11-0.8); Monocytes % 19.1 % (1.7-12.7); NRBC # 0.04 10*3/uL; Platelet Count 94 T/CUMM (130-400); Red Blood Count 4.13 MC/CUMM (3.8-5.5); Red Cell Distribution Width 18.4 % (9.3-17.3); White Blood Count 4.9 T/CUMM (4-12)
[2018-06-14 06:40] LABS: Hematocrit 31.2 VOL% (42.0-52.0)
[2018-06-14 06:47] LABS: Eosinophils 2 % (0-10); Hypochromasia 1+; Lymphocytes 13 % (20-55); Platelet Estimate Decreased; Segmented Neutrophils 74 % (50-85); Total Cells Counted 100
[2018-06-14 06:48] LABS: Ovalocytes Slight
[2018-06-14] MEDS: PANTOPRAZOLE 40 MG TABLET PO SCH (07:53)
[2018-06-14] MEDS: BENZONATATE 100 MG CAPSULE PO SCH (09:59)
[2018-06-14] MEDS: FUROSEMIDE 40 MG TABLET PO SCH (10:00)
[2018-06-14] MEDS: FERROUS SULFATE 325 MG TABLET PO SCH (10:00)
[2018-06-14] MEDS: TAMSULOSIN 0.4 MG CAPSULE PO SCH (10:00)
[2018-06-14] MEDS: guaiFENesin/DM ER 600-30 MG TABLET PO SCH (10:00)
[2018-06-14] MEDS: ASPIRIN EC 81 MG TABLET PO SCH (10:00)
[2018-06-14 12:52] VITALS: BP 124/72
[2018-06-14] MEDS: ERTAPENEM 1,000 MG in SODIUM CHLORIDE 0.9% 100 ML IV SCH (13:10)
== END 2018-06-14 13:08 | DRG 640 ==
LOC: N.EDINP 12:38 → N.ED 12:38 → N.EDINP 17:26 → N.4E 17:30
PROVIDERS: ADMIT Hospitalist; ATTEND Hospitalist

== ENCOUNTER 2018-06-27 14:38 | Inpatient (IN) ==
[2018-06-27] MEDS ORDERED: MORPHINE 4 MG/1 ML VIAL IV STA (15:08)
[2018-06-27] MEDS ORDERED: FUROSEMIDE 100 MG/10 ML VIAL IV STA (15:08)
[2018-06-27] MEDS ORDERED: cefTRIAXone 1,000 MG in SODIUM CHLORIDE 0.9% 100 ML IV STA (15:08)
[2018-06-27] MEDS ORDERED: ONDANSETRON 4 MG/2 ML VIAL IV STA (15:08)
[2018-06-27] MEDS ORDERED: ALBUTEROL/IPRATROPIUM 3 ML NEB RESP TX STA (15:08)
[2018-06-27] MEDS ORDERED: methylPREDNISolone SOD SUC 125 MG/2 ML VIAL IV STA (15:08)
[2018-06-27 16:00] LABS: Basophils % 0.2 % (0.0-0.8); Hematocrit 29.3 VOL% (42.0-52.0); Hemoglobin 8.6 GM/DL (14.0-18.0); Immature Granulocytes % 0.8 %; Immature Granulocytes Absolute 0.05 #; Lymphocytes # 0.2 10*3/uL (1.4-4.0); Lymphocytes % 3.3 % (21.2-54.2); Mean Corpuscular HGB Conc 29.4 GM/DL (32-36); Mean Corpuscular Hemoglobin 22 PG (27-34); Mean Corpuscular Volume 76.3 FL (87-102); Monocytes # 0.8 10*3/uL (0.11-0.8); Monocytes % 11.8 % (1.7-12.7); NRBC # 0.15 10*3/uL; Neutrophils # 5.3 10*3/uL (1.4-7.4); Neutrophils % 83.9 % (38.7-73.9); Platelet Count 106 T/CUMM (130-400); Red Blood Count 3.84 MC/CUMM (3.8-5.5); White Blood Count 6.3 T/CUMM (4-12)
[2018-06-27 16:09] LABS: INR 1.6; PT Patient Result 17.4 SECS
[2018-06-27 16:27] LABS: Alanine Aminotransferase 121 U/L (16-61); Albumin 3.3 G/DL (3.4-5.0); Alkaline Phosphatase 132 U/L (45-117); Aspartate Amino Transferase 164 U/L (0-37); Blood Urea Nitrogen 29 MG/DL (7-18); Calcium 8.9 MG/DL (8.5-10.1); Glucose 105 MG/DL (74-106); Osmolality,Calculated 267.7 MOS/KG (273-304); Potassium 5.2 MMOL/L (3.5-5.1); Sodium 131 MMOL/L (136-145); Total Protein 7.6 G/DL (6.4-8.3)
[2018-06-27 16:54] LABS: ABG Base Excess 0.9 MMOL/L (-2.5-2.5); ABG HCO3 25.1 MMOL/L (20-26); ABG Oxygen Saturation 90.8 % (95-100); ABG PCO2 61.7 MM HG (35-48); ABG PH 7.276 (7.35-7.45); ABG PO2 73.7 MM HG (80-95); Pt O2 Delivery Device Other
[2018-06-27 17:19] LABS: Hypochromasia 1+; Lymphocytes 1 % (20-55); Nucleated Red Blood Cells 2 (0-5); Segmented Neutrophils 93 % (50-85)
[2018-06-27 17:21] LABS: Polychromasia Slight; Target Cells Slight
[2018-06-27 17:24] LABS: Anisocytosis Slight; Microcytosis Slight; Ovalocytes Slight; Schistocytes Few
[2018-06-27 17:25] LABS: Platelet Estimate Decreased
[2018-06-27 17:26] LABS: Total Cells Counted 100
[2018-06-27 17:41] LABS: Apearance,Urine CLEAR (Clear); Bilirubin,Urine Negative (Negative); Blood, Urine Negative (Negative); Glucose,Urine (UA) Negative (Negative); Ketones,Urine Negative (Negative); Nitrite,Urine Negative (Negative); Protein,Urine Negative; Urine Color Yellow (Yellow); Urine Specific Gravity 1.008 (1.001-1.035); Urine Urobilinogen < 2.0 EU/DL (0.2-1.0)
[2018-06-27 17:50] LABS: RBC,Urine Rare /HPF (0-4); Squamous Epithelial Cell,Urine Few /HPF (0-10); WBC,Urine 15 /HPF (0-6)
[2018-06-27] MEDS ORDERED: DOCUSATE SODIUM 100 MG CAPSULE PO PRN (21:21)
[2018-06-27] MEDS ORDERED: MORPHINE 4 MG/1 ML VIAL IV PRN (21:21)
[2018-06-27] MEDS ORDERED: ONDANSETRON 4 MG/2 ML VIAL IV PRN (21:21)
[2018-06-27] MEDS ORDERED: BENZONATATE 100 MG CAPSULE PO PRN (21:21)
[2018-06-27] MEDS ORDERED: LACTULOSE 20 GM/30 ML UDCUP PO PRN (21:21)
[2018-06-27] MEDS ORDERED: traMADol 50 MG TABLET PO PRN (21:21)
[2018-06-27] MEDS: SIMVASTATIN 10 MG TABLET PO SCH (22:25)
[2018-06-27] MEDS: DICYCLOMINE 20 MG TABLET PO SCH (22:26)
[2018-06-27] MEDS: MEROPENEM 500 MG in SODIUM CHLORIDE 0.9% 100 ML IV SCH (23:06)
[2018-06-27] MEDS: LATANOPROST 0.005% OPH SOLN 2.5 ML BOTTLE BOTH EYES SCH (23:06)
[2018-06-28 04:45] LABS: Osmolality,Calculated 274.2 MOS/KG (273-304); Potassium 4.9 MMOL/L (3.5-5.1)
[2018-06-28 05:07] LABS: Hematocrit 29.4 VOL% (42.0-52.0); Immature Granulocytes % 1.1 %; Immature Granulocytes Absolute 0.05 #; Lymphocytes # 0.2 10*3/uL (1.4-4.0); Lymphocytes % 4.1 % (21.2-54.2); Mean Corpuscular HGB Conc 28.6 GM/DL (32-36); Mean Corpuscular Hemoglobin 22 PG (27-34); Mean Corpuscular Volume 77.2 FL (87-102); Monocytes # 0.3 10*3/uL (0.11-0.8); Monocytes % 5.3 % (1.7-12.7); NRBC # 0.13 10*3/uL; Neutrophils # 4.2 10*3/uL (1.4-7.4); Neutrophils % 89.5 % (38.7-73.9); Platelet Count 118 T/CUMM (130-400); Red Blood Count 3.81 MC/CUMM (3.8-5.5); Red Cell Distribution Width 20.9 % (9.3-17.3); White Blood Count 4.7 T/CUMM (4-12)
[2018-06-28 05:08] LABS: Hemoglobin 8.4 GM/DL (14.0-18.0)
[2018-06-28 05:12] LABS: Band Neutrophils 1 % (0-10); Hypochromasia 1+; Lymphocytes 3 % (20-55); Microcytosis Slight; Nucleated Red Blood Cells 2 (0-5); Ovalocytes Slight; Platelet Estimate Decreased; Segmented Neutrophils 94 % (50-85); Total Cells Counted 100
[2018-06-28] MEDS: CHOLECALCIFEROL 1,000 UNIT TABLET PO SCH (08:52)
[2018-06-28] MEDS: ASPIRIN EC 81 MG TABLET PO SCH (08:52)
[2018-06-28] MEDS: FERROUS SULFATE 325 MG TABLET PO SCH (08:52)
[2018-06-28] MEDS: ENOXAPARIN 30 MG/0.3 ML SYRINGE SUBCUT SCH (08:55)
[2018-06-28] MEDS: FUROSEMIDE 40 MG/4 ML VIAL IV SCH ×2 (08:56→16:43)
[2018-06-28] MEDS: TAMSULOSIN 0.4 MG CAPSULE PO SCH (09:02)
[2018-06-28] MEDS: PANTOPRAZOLE 40 MG TABLET PO SCH ×2 (09:04→18:30)
[2018-06-28] MEDS: MEROPENEM 500 MG in SODIUM CHLORIDE 0.9% 100 ML IV SCH ×2 (11:57→23:10)
[2018-06-28] MEDS: LATANOPROST 0.005% OPH SOLN 2.5 ML BOTTLE BOTH EYES SCH (20:34)
[2018-06-28] MEDS: DICYCLOMINE 20 MG TABLET PO SCH (20:34)
[2018-06-28] MEDS: SIMVASTATIN 10 MG TABLET PO SCH (20:34)
[2018-06-29 06:03] LABS: Hematocrit 28.3 VOL% (42.0-52.0); Immature Granulocytes % 0.7 %; Immature Granulocytes Absolute 0.04 #; Lymphocytes # 0.3 10*3/uL (1.4-4.0); Lymphocytes % 6.4 % (21.2-54.2); Mean Corpuscular HGB Conc 28.3 GM/DL (32-36); Mean Corpuscular Hemoglobin 22 PG (27-34); Mean Corpuscular Volume 78.4 FL (87-102); Mean Platelet Volume 10.5 FL (9.6-12.0); Monocytes # 0.9 10*3/uL (0.11-0.8); Monocytes % 16.3 % (1.7-12.7); NRBC # 0.29 10*3/uL; Neutrophils # 4.1 10*3/uL (1.4-7.4); Neutrophils % 76.6 % (38.7-73.9); Platelet Count 145 T/CUMM (130-400); Red Blood Count 3.61 MC/CUMM (3.8-5.5); Red Cell Distribution Width 20.5 % (9.3-17.3); White Blood Count 5.3 T/CUMM (4-12)
[2018-06-29 06:13] LABS: Calcium 8.8 MG/DL (8.5-10.1); Osmolality,Calculated 276.2 MOS/KG (273-304); Potassium 4.5 MMOL/L (3.5-5.1)
[2018-06-29 06:27] LABS: Hemoglobin 8.1 GM/DL (14.0-18.0)
[2018-06-29 06:44] LABS: Lymphocytes 8 % (20-55); Nucleated Red Blood Cells 8 (0-5); Segmented Neutrophils 82 % (50-85); Total Cells Counted 100
[2018-06-29 06:45] LABS: Microcytosis 1+; Ovalocytes Slight; Polychromasia Slight; Target Cells Slight
[2018-06-29 06:46] LABS: Hypochromasia 2+; Platelet Estimate Adequate
[2018-06-29] MEDS: ENOXAPARIN 30 MG/0.3 ML SYRINGE SUBCUT SCH (09:00)
[2018-06-29] MEDS: MEROPENEM 500 MG in SODIUM CHLORIDE 0.9% 100 ML IV SCH (09:01)
[2018-06-29] MEDS: FUROSEMIDE 40 MG/4 ML VIAL IV SCH (09:01)
[2018-06-29] MEDS: CHOLECALCIFEROL 1,000 UNIT TABLET PO SCH (09:02)
[2018-06-29] MEDS: ASPIRIN EC 81 MG TABLET PO SCH (09:02)
[2018-06-29] MEDS: FERROUS SULFATE 325 MG TABLET PO SCH (09:02)
[2018-06-29] MEDS: PANTOPRAZOLE 40 MG TABLET PO SCH ×2 (09:02→18:15)
[2018-06-29] MEDS: TAMSULOSIN 0.4 MG CAPSULE PO SCH (09:02)
[2018-06-29] MEDS: FUROSEMIDE 40 MG/5 ML UDCUP PO SCH (16:13)
[2018-06-29] MEDS: cefTRIAXone 1,000 MG in SYRINGE 1 EACH IV SCH (18:15)
[2018-06-29] MEDS: LATANOPROST 0.005% OPH SOLN 2.5 ML BOTTLE BOTH EYES SCH (20:58)
[2018-06-29] MEDS: DICYCLOMINE 20 MG TABLET PO SCH (20:58)
[2018-06-29] MEDS: SIMVASTATIN 10 MG TABLET PO SCH (20:59)
[2018-06-30] MEDS: PANTOPRAZOLE 40 MG TABLET PO SCH ×2 (06:04→18:13)
[2018-06-30] MEDS: FUROSEMIDE 40 MG/5 ML UDCUP PO SCH ×2 (07:52→16:59)
[2018-06-30] MEDS: ENOXAPARIN 30 MG/0.3 ML SYRINGE SUBCUT SCH (08:04)
[2018-06-30] MEDS: CHOLECALCIFEROL 1,000 UNIT TABLET PO SCH (08:04)
[2018-06-30] MEDS: ASPIRIN EC 81 MG TABLET PO SCH (08:05)
[2018-06-30] MEDS: FERROUS SULFATE 325 MG TABLET PO SCH (08:05)
[2018-06-30] MEDS: TAMSULOSIN 0.4 MG CAPSULE PO SCH (08:05)
[2018-06-30] MEDS: cefTRIAXone 1,000 MG in SYRINGE 1 EACH IV SCH (16:48)
[2018-06-30] MEDS: LATANOPROST 0.005% OPH SOLN 2.5 ML BOTTLE BOTH EYES SCH (20:56)
[2018-06-30] MEDS: SIMVASTATIN 10 MG TABLET PO SCH (20:56)
[2018-06-30] MEDS: DICYCLOMINE 20 MG TABLET PO SCH (20:57)
[2018-07-01 04:48] LABS: Calcium 8.2 MG/DL (8.5-10.1); Osmolality,Calculated 276.1 MOS/KG (273-304); Potassium 3.9 MMOL/L (3.5-5.1)
[2018-07-01] MEDS: PANTOPRAZOLE 40 MG TABLET PO SCH (06:17)
[2018-07-01 07:47] VITALS: BP 133/67
[2018-07-01] MEDS: ASPIRIN EC 81 MG TABLET PO SCH (09:02)
[2018-07-01] MEDS: TAMSULOSIN 0.4 MG CAPSULE PO SCH (09:02)
[2018-07-01] MEDS: CHOLECALCIFEROL 1,000 UNIT TABLET PO SCH (09:02)
[2018-07-01] MEDS: FUROSEMIDE 40 MG/5 ML UDCUP PO SCH (09:02)
[2018-07-01] MEDS: FERROUS SULFATE 325 MG TABLET PO SCH (09:03)
[2018-07-01] MEDS: ENOXAPARIN 30 MG/0.3 ML SYRINGE SUBCUT SCH (09:03)
== END 2018-07-01 11:45 | DRG 292 ==
LOC: EDBD → EDUNIT# → N.ED 14:38 → SUATTDRO 19:33 → N.EDINP 19:33 → N.TELEN 20:10
PROVIDERS: ADMIT Internal Medicine; ATTEND Internal Medicine Cardiovascular Disease

== ENCOUNTER 2018-07-09 13:57 | Inpatient (IN) ==
[2018-07-09] MEDS ORDERED: FUROSEMIDE 40 MG/4 ML VIAL IV STA (14:51)
[2018-07-09 15:35] LABS: Albumin 3.5 G/DL (3.4-5.0); Bilirubin,Total 1.1 MG/DL (0.2-1.0); Calcium 8.9 MG/DL (8.5-10.1); Osmolality,Calculated 279.8 MOS/KG (273-304); Potassium 4.5 MMOL/L (3.5-5.1); Total Protein 7.9 G/DL (6.4-8.3)
[2018-07-09 15:51] LABS: Basophils % 0.3 % (0.0-0.8); Immature Granulocytes % 1.1 %; Immature Granulocytes Absolute 0.04 #; Lymphocytes # 0.2 10*3/uL (1.4-4.0); Lymphocytes % 6.1 % (21.2-54.2); Mean Corpuscular Hemoglobin 22 PG (27-34); Mean Corpuscular Volume 77.5 FL (87-102); Monocytes # 0.4 10*3/uL (0.11-0.8); Monocytes % 10.6 % (1.7-12.7); NRBC # 0.02 10*3/uL; Neutrophils # 3.1 10*3/uL (1.4-7.4); Neutrophils % 81.9 % (38.7-73.9); Red Blood Count 4.05 MC/CUMM (3.8-5.5); Red Cell Distribution Width 22.1 % (9.3-17.3); White Blood Count 3.8 T/CUMM (4-12)
[2018-07-09 15:52] LABS: Platelet Count 87 T/CUMM (130-400)
[2018-07-09] MEDS ORDERED: ONDANSETRON 4 MG/2 ML VIAL IV PRN (17:04)
[2018-07-09] MEDS ORDERED: DOCUSATE SODIUM 100 MG CAPSULE PO PRN (17:04)
[2018-07-09] MEDS ORDERED: LACTULOSE 20 GM/30 ML UDCUP PO PRN (17:04)
[2018-07-09] MEDS ORDERED: ACETAMINOPHEN 325 MG TABLET PO PRN (17:04)
[2018-07-09] MEDS ORDERED: BENZONATATE 100 MG CAPSULE PO PRN (17:10)
[2018-07-09] MEDS ORDERED: traMADol 50 MG TABLET PO PRN (17:10)
[2018-07-09] MEDS: FUROSEMIDE 40 MG/4 ML VIAL IV SCH (21:57)
[2018-07-09] MEDS: SIMVASTATIN 10 MG TABLET PO SCH (21:57)
[2018-07-09] MEDS: POTASSIUM CHLORIDE 20 MEQ TABLET PO SCH (21:57)
[2018-07-09] MEDS: PANTOPRAZOLE 40 MG TABLET PO SCH (21:57)
[2018-07-09] MEDS: DICYCLOMINE 20 MG TABLET PO SCH (21:57)
[2018-07-09] MEDS: LATANOPROST 0.005% OPH SOLN 2.5 ML BOTTLE BOTH EYES SCH (22:00)
[2018-07-10 06:00] LABS: Calcium 8.8 MG/DL (8.5-10.1); Osmolality,Calculated 279.5 MOS/KG (273-304)
[2018-07-10 06:11] LABS: Eosinophils % 0.3 % (0.00-10.9); Hematocrit 28.2 VOL% (42.0-52.0); Hemoglobin 8.1 GM/DL (14.0-18.0); Immature Granulocytes % 0.6 %; Immature Granulocytes Absolute 0.02 #; Lymphocytes # 0.4 10*3/uL (1.4-4.0); Lymphocytes % 10.5 % (21.2-54.2); Mean Corpuscular HGB Conc 28.7 GM/DL (32-36); Mean Corpuscular Hemoglobin 22 PG (27-34); Monocytes # 0.7 10*3/uL (0.11-0.8); Monocytes % 20.2 % (1.7-12.7); NRBC # 0.03 10*3/uL; Neutrophils # 2.3 10*3/uL (1.4-7.4); Neutrophils % 68.4 % (38.7-73.9); Platelet Count 56 T/CUMM (130-400); Red Blood Count 3.66 MC/CUMM (3.8-5.5); Red Cell Distribution Width 21.9 % (9.3-17.3); White Blood Count 3.4 T/CUMM (4-12)
[2018-07-10 07:14] LABS: Anisocytosis 2+; Band Neutrophils 5 % (0-10); Basophilic Stippling Slight; Hypochromasia 1+; Lymphocytes 16 % (20-55); Nucleated Red Blood Cells 2 (0-5); Platelet Estimate Decreased; Segmented Neutrophils 69 % (50-85); Total Cells Counted 100
[2018-07-10 07:15] LABS: Macrocytosis 1+; Poikilocytosis 1+; Polychromasia Slight; Target Cells 1+
[2018-07-10] MEDS: PANTOPRAZOLE 40 MG TABLET PO SCH ×2 (09:37→21:47)
[2018-07-10] MEDS: CHOLECALCIFEROL 1,000 UNIT TABLET PO SCH (09:37)
[2018-07-10] MEDS: FUROSEMIDE 40 MG/4 ML VIAL IV SCH ×2 (09:37→15:37)
[2018-07-10] MEDS: POTASSIUM CHLORIDE 20 MEQ TABLET PO SCH ×2 (09:37→21:47)
[2018-07-10] MEDS: TAMSULOSIN 0.4 MG CAPSULE PO SCH (09:37)
[2018-07-10] MEDS: ASPIRIN EC 81 MG TABLET PO SCH (09:37)
[2018-07-10] MEDS: DICYCLOMINE 20 MG TABLET PO SCH (21:47)
[2018-07-10] MEDS: SIMVASTATIN 10 MG TABLET PO SCH (21:47)
[2018-07-10] MEDS: LATANOPROST 0.005% OPH SOLN 2.5 ML BOTTLE BOTH EYES SCH (21:51)
[2018-07-11 05:26] LABS: Calcium 8.6 MG/DL (8.5-10.1); Osmolality,Calculated 277.7 MOS/KG (273-304); Potassium 3.9 MMOL/L (3.5-5.1)
[2018-07-11 05:40] LABS: Basophils % 0.3 % (0.0-0.8); Eosinophils # 0.1 10*3/uL (0.0-0.87); Eosinophils % 1.9 % (0.00-10.9); Hematocrit 28.8 VOL% (42.0-52.0); Hemoglobin 8.1 GM/DL (14.0-18.0); Immature Granulocytes % 0.6 %; Immature Granulocytes Absolute 0.02 #; Lymphocytes # 0.5 10*3/uL (1.4-4.0); Lymphocytes % 15.1 % (21.2-54.2); Mean Corpuscular HGB Conc 28.1 GM/DL (32-36); Mean Corpuscular Hemoglobin 22 PG (27-34); Mean Corpuscular Volume 77.6 FL (87-102); Monocytes # 0.6 10*3/uL (0.11-0.8); Monocytes % 20.1 % (1.7-12.7); NRBC # 0.02 10*3/uL; Red Blood Count 3.71 MC/CUMM (3.8-5.5); Red Cell Distribution Width 21.7 % (9.3-17.3); White Blood Count 3.2 T/CUMM (4-12)
[2018-07-11 05:55] LABS: Platelet Count 72 T/CUMM (130-400)
[2018-07-11 06:05] LABS: Band Neutrophils 1 % (0-10); Eosinophils 2 % (0-10); Lymphocytes 11 % (20-55); Nucleated Red Blood Cells 1 (0-5); Segmented Neutrophils 70 % (50-85); Total Cells Counted 100
[2018-07-11 06:06] LABS: Hypochromasia 2+; Microcytosis 1+; Ovalocytes Slight; Target Cells Few
[2018-07-11 06:07] LABS: Anisocytosis 1+; Platelet Estimate Decreased
[2018-07-11] MEDS: CHOLECALCIFEROL 1,000 UNIT TABLET PO SCH (09:16)
[2018-07-11] MEDS: PANTOPRAZOLE 40 MG TABLET PO SCH ×2 (09:16→22:01)
[2018-07-11] MEDS: metOLazone 5 MG TABLET PO SCH (09:17)
[2018-07-11] MEDS: TAMSULOSIN 0.4 MG CAPSULE PO SCH (09:17)
[2018-07-11] MEDS: POTASSIUM CHLORIDE 20 MEQ TABLET PO SCH ×2 (09:17→22:01)
[2018-07-11] MEDS: IRON (CARBONYL)/VIT C/B12/FA TABLET PO SCH (09:17)
[2018-07-11] MEDS: ASPIRIN EC 81 MG TABLET PO SCH (09:17)
[2018-07-11] MEDS: FUROSEMIDE 40 MG/4 ML VIAL IV SCH ×2 (09:17→15:40)
[2018-07-11] MEDS ORDERED: IRON SUCROSE 300 MG in SODIUM CHLORIDE 0.9% 100 ML IV ONE (17:00)
[2018-07-11] MEDS ORDERED: ENOXAPARIN 40 MG/0.4 ML SYRINGE SUBCUT SCH (21:00)
[2018-07-11] MEDS: SIMVASTATIN 10 MG TABLET PO SCH (22:01)
[2018-07-11] MEDS: DOCUSATE SODIUM 100 MG CAPSULE PO SCH (22:01)
[2018-07-11] MEDS: DICYCLOMINE 20 MG TABLET PO SCH (22:01)
[2018-07-12 04:54] LABS: Calcium 8.7 MG/DL (8.5-10.1); Osmolality,Calculated 277.7 MOS/KG (273-304); Potassium 3.1 MMOL/L (3.5-5.1)
[2018-07-12 04:56] LABS: % Iron Saturation 12.2 % (18-50); Ferritin 21.1 ng/ml (26-388)
[2018-07-12 05:10] LABS: Eosinophils # 0.1 10*3/uL (0.0-0.87); Eosinophils % 1.4 % (0.00-10.9); Immature Granulocytes % 0.3 %; Immature Granulocytes Absolute 0.01 #; Lymphocytes # 0.4 10*3/uL (1.4-4.0); Lymphocytes % 11.9 % (21.2-54.2); Mean Corpuscular HGB Conc 28.5 GM/DL (32-36); Mean Corpuscular Hemoglobin 22 PG (27-34); Mean Corpuscular Volume 76.8 FL (87-102); Monocytes # 0.7 10*3/uL (0.11-0.8); Monocytes % 18.7 % (1.7-12.7); NRBC # 0.02 10*3/uL; Neutrophils # 2.4 10*3/uL (1.4-7.4); Neutrophils % 67.7 % (38.7-73.9); Platelet Count 48 T/CUMM (130-400); Red Blood Count 3.66 MC/CUMM (3.8-5.5); Red Cell Distribution Width 21.6 % (9.3-17.3); White Blood Count 3.5 T/CUMM (4-12)
[2018-07-12 05:13] LABS: Hematocrit 28.1 VOL% (42.0-52.0)
[2018-07-12 05:21] LABS: Eosinophils 4 % (0-10); Hypochromasia 2+; Lymphocytes 9 % (20-55); Ovalocytes Slight; Platelet Estimate Decreased; Segmented Neutrophils 71 % (50-85); Total Cells Counted 100
[2018-07-12 05:22] LABS: Microcytosis Slight; Target Cells Few
[2018-07-12 08:53] VITALS: BP 102/71
[2018-07-12] MEDS ORDERED: POTASSIUM CHLORIDE 20 MEQ TABLET PO ONE (09:58)
[2018-07-12] MEDS: metOLazone 5 MG TABLET PO SCH (10:01)
[2018-07-12] MEDS: CHOLECALCIFEROL 1,000 UNIT TABLET PO SCH (10:02)
[2018-07-12] MEDS: ASPIRIN EC 81 MG TABLET PO SCH (10:02)
[2018-07-12] MEDS: IRON (CARBONYL)/VIT C/B12/FA TABLET PO SCH (10:02)
[2018-07-12] MEDS: TAMSULOSIN 0.4 MG CAPSULE PO SCH (10:02)
[2018-07-12] MEDS: PANTOPRAZOLE 40 MG TABLET PO SCH (10:03)
[2018-07-12] MEDS: DOCUSATE SODIUM 100 MG CAPSULE PO SCH (10:03)
[2018-07-12] MEDS: FUROSEMIDE 40 MG/4 ML VIAL IV SCH (10:03)
[2018-07-12] MEDS: POTASSIUM CHLORIDE 20 MEQ TABLET PO SCH (10:10)
[2018-07-12] MEDS ORDERED: POTASSIUM CHLORIDE 20 MEQ TABLET PO SCH (15:00)
[2018-07-12] MEDS ORDERED: FUROSEMIDE 20 MG TABLET PO SCH (16:00)
== END 2018-07-12 15:37 | disposition home health service (06) | DRG 292 ==
LOC: EDBD → EDUNIT# → N.ED 13:57 → N.EDINP 17:04 → N.TELES 18:47
PROVIDERS: ADMIT Hospitalist; ATTEND Hospitalist

== ENCOUNTER 2018-07-17 14:26 | Inpatient (IN) ==
[2018-07-17 15:27] LABS: ABG Base Excess 13.3 MMOL/L (-2.5-2.5); ABG HCO3 36.9 MMOL/L (20-26); ABG Oxygen Saturation 87.9 % (95-100); ABG PH 7.373 (7.35-7.45); ABG PO2 59.3 MM HG (80-95); ABG TCO2 38.2 MMOL/L (23-27); Allen Test Positive
[2018-07-17 15:34] LABS: ABG PCO2 70.8 MM HG (35-48)
[2018-07-17 16:00] LABS: Albumin 3.5 G/DL (3.4-5.0); Calcium 8.8 MG/DL (8.5-10.1); Osmolality,Calculated 271.2 MOS/KG (273-304); Potassium 3.7 MMOL/L (3.5-5.1); Total Protein 8.1 G/DL (6.4-8.3)
[2018-07-17 16:03] LABS: Basophils % 0.2 % (0.0-0.8); Eosinophils % 0.6 % (0.00-10.9); Hematocrit 31.5 VOL% (42.0-52.0); Hemoglobin 9.1 GM/DL (14.0-18.0); Immature Granulocytes % 1.3 %; Immature Granulocytes Absolute 0.06 #; Lymphocytes # 0.4 10*3/uL (1.4-4.0); Mean Corpuscular HGB Conc 28.9 GM/DL (32-36); Mean Corpuscular Hemoglobin 22 PG (27-34); Mean Corpuscular Volume 77.4 FL (87-102); Monocytes # 0.6 10*3/uL (0.11-0.8); Monocytes % 12.4 % (1.7-12.7); NRBC # 0.06 10*3/uL; Neutrophils # 3.7 10*3/uL (1.4-7.4); Neutrophils % 76.5 % (38.7-73.9); Red Blood Count 4.07 MC/CUMM (3.8-5.5); Red Cell Distribution Width 22.2 % (9.3-17.3); White Blood Count 4.8 T/CUMM (4-12)
[2018-07-17 16:04] LABS: Platelet Count 50 T/CUMM (130-400)
[2018-07-17 16:06] LABS: Elliptocytes Few; Hypochromasia 1+; Platelet Estimate Decreased; Polychromasia Few; Target Cells Few
[2018-07-17] MEDS ORDERED: LACTULOSE 20 GM/30 ML UDCUP PO PRN (17:24)
[2018-07-17] MEDS ORDERED: traMADol 50 MG TABLET PO PRN (17:24)
[2018-07-17] MEDS ORDERED: ALBUTEROL 2.5 MG/3 ML NEB RESP TX PRN (17:28)
[2018-07-17] MEDS ORDERED: ONDANSETRON 4 MG/2 ML VIAL IV PRN (17:28)
[2018-07-17] MEDS ORDERED: PROMETHAZINE 25 MG/1 ML VIAL IM PRN (17:28)
[2018-07-17] MEDS ORDERED: POTASSIUM CHLORIDE RIDER 10 MEQ in PREMIX 1 EACH IV PRN (17:37)
[2018-07-17] MEDS ORDERED: MAGNESIUM SULF RIDER 4 GM in PREMIX 1 EACH IV PRN (17:37)
[2018-07-17] MEDS ORDERED: MAGNESIUM SULF RIDER 2 GM in PREMIX 1 EACH IV PRN (17:37)
[2018-07-17 18:39] LABS: Apearance,Urine CLEAR (Clear); Bilirubin,Urine Negative (Negative); Blood, Urine Negative (Negative); Glucose,Urine (UA) Negative (Negative); Hyaline Casts,Urine 3 /LPF (0-3); Ketones,Urine Negative (Negative); Nitrite,Urine Negative (Negative); Protein,Urine Negative; RBC,Urine <1 /HPF (0-4); Urine Color Straw (Yellow); Urine Specific Gravity 1.006 (1.001-1.035); Urine Urobilinogen < 2.0 EU/DL (0.2-1.0); WBC,Urine <1 /HPF (0-6)
[2018-07-17] MEDS: ALBUTEROL/IPRATROPIUM 3 ML NEB RESP TX SCH (19:12)
[2018-07-17] MEDS: DICYCLOMINE 20 MG TABLET PO SCH (20:32)
[2018-07-17] MEDS: DOCUSATE SODIUM 100 MG CAPSULE PO SCH (20:32)
[2018-07-17] MEDS: PANTOPRAZOLE 40 MG TABLET PO SCH (20:32)
[2018-07-17] MEDS: SIMVASTATIN 20 MG TABLET PO SCH (20:32)
[2018-07-17] MEDS: CARVEDILOL 3.125 MG TABLET PO SCH (20:32)
[2018-07-17] MEDS: methylPREDNISolone SOD SUC 40 MG/1 ML VIAL IV SCH (20:32)
[2018-07-17] MEDS: LATANOPROST 0.005% OPH SOLN 2.5 ML BOTTLE BOTH EYES SCH (21:43)
[2018-07-18] MEDS: methylPREDNISolone SOD SUC 40 MG/1 ML VIAL IV SCH ×4 (01:21→18:55)
[2018-07-18] MEDS: ALBUTEROL/IPRATROPIUM 3 ML NEB RESP TX SCH ×4 (01:41→19:32)
[2018-07-18 03:57] LABS: ABG Base Excess 13.6 MMOL/L (-2.5-2.5); ABG HCO3 37.5 MMOL/L (20-26); ABG PH 7.297 (7.35-7.45); ABG TCO2 40.5 MMOL/L (23-27); Allen Test Positive; Pt O2 Delivery Device BIPAP
[2018-07-18 04:30] LABS: Eosinophils % 0.3 % (0.00-10.9); Hemoglobin 8.7 GM/DL (14.0-18.0); Immature Granulocytes % 0.7 %; Immature Granulocytes Absolute 0.02 #; Lymphocytes # 0.2 10*3/uL (1.4-4.0); Mean Corpuscular HGB Conc 27.4 GM/DL (32-36); Mean Corpuscular Hemoglobin 22 PG (27-34); Mean Corpuscular Volume 79.3 FL (87-102); Monocytes # 0.1 10*3/uL (0.11-0.8); Monocytes % 2.7 % (1.7-12.7); NRBC # 0.03 10*3/uL; Neutrophils # 2.7 10*3/uL (1.4-7.4); Neutrophils % 89.3 % (38.7-73.9); Platelet Count 90 T/CUMM (130-400)
[2018-07-18 04:33] LABS: Hematocrit 31.7 VOL% (42.0-52.0)
[2018-07-18 04:37] LABS: ABG PCO2 88.8 MM HG (35-48)
[2018-07-18 04:54] LABS: Bilirubin,Total 1.4 MG/DL (0.2-1.0); Calcium 8.7 MG/DL (8.5-10.1); Potassium 4.2 MMOL/L (3.5-5.1); Total Protein 7.2 G/DL (6.4-8.3)
[2018-07-18 05:14] LABS: Hypochromasia Slight; Platelet Estimate Decreased; Polychromasia Few
[2018-07-18] MEDS: PANTOPRAZOLE 40 MG TABLET PO SCH ×2 (06:16→18:18)
[2018-07-18] MEDS: TAMSULOSIN 0.4 MG CAPSULE PO SCH (11:24)
[2018-07-18] MEDS: metOLazone 2.5 MG TABLET PO SCH (11:24)
[2018-07-18] MEDS: CHOLECALCIFEROL 1,000 UNIT TABLET PO SCH (11:24)
[2018-07-18] MEDS: FUROSEMIDE 40 MG/4 ML VIAL IV SCH ×2 (11:25→13:20)
[2018-07-18] MEDS: IRON (CARBONYL)/VIT C/B12/FA TABLET PO SCH (11:25)
[2018-07-18] MEDS: CARVEDILOL 3.125 MG TABLET PO SCH ×2 (11:25→21:26)
[2018-07-18] MEDS: ASPIRIN EC 81 MG TABLET PO SCH (11:25)
[2018-07-18] MEDS: SPIRONOLACTONE 25 MG TABLET PO SCH (11:25)
[2018-07-18] MEDS: DOCUSATE SODIUM 100 MG CAPSULE PO SCH ×2 (11:25→21:25)
[2018-07-18] MEDS: DICYCLOMINE 20 MG TABLET PO SCH (21:25)
[2018-07-18] MEDS: SIMVASTATIN 20 MG TABLET PO SCH (21:26)
[2018-07-18] MEDS: LATANOPROST 0.005% OPH SOLN 2.5 ML BOTTLE BOTH EYES SCH (21:26)
[2018-07-19] MEDS: ALBUTEROL/IPRATROPIUM 3 ML NEB RESP TX SCH ×4 (00:27→19:41)
[2018-07-19] MEDS: methylPREDNISolone SOD SUC 40 MG/1 ML VIAL IV SCH ×4 (02:20→18:36)
[2018-07-19 05:06] LABS: Albumin 2.9 G/DL (3.4-5.0); Bilirubin,Total 1.4 MG/DL (0.2-1.0); Calcium 8.7 MG/DL (8.5-10.1); Osmolality,Calculated 275.1 MOS/KG (273-304); Potassium 3.3 MMOL/L (3.5-5.1); Total Protein 6.9 G/DL (6.4-8.3)
[2018-07-19 05:34] LABS: Immature Granulocytes % 0.5 %; Immature Granulocytes Absolute 0.02 #; Lymphocytes # 0.4 10*3/uL (1.4-4.0); Mean Corpuscular HGB Conc 28.7 GM/DL (32-36); Mean Corpuscular Hemoglobin 22 PG (27-34); Mean Corpuscular Volume 76.9 FL (87-102); Monocytes # 0.3 10*3/uL (0.11-0.8); Monocytes % 8.8 % (1.7-12.7); NRBC # 0.02 10*3/uL; Neutrophils # 3.2 10*3/uL (1.4-7.4); Neutrophils % 81.7 % (38.7-73.9); Red Cell Distribution Width 22.2 % (9.3-17.3); White Blood Count 3.9 T/CUMM (4-12)
[2018-07-19 05:38] LABS: Hemoglobin 8.6 GM/DL (14.0-18.0); Platelet Count 73 T/CUMM (130-400)
[2018-07-19 06:02] LABS: Platelet Estimate Decreased
[2018-07-19 06:03] LABS: Hypochromasia 1+; Microcytosis 1+; Polychromasia Few
[2018-07-19] MEDS ORDERED: POTASSIUM CHLORIDE 20 MEQ/15 ML UDCUP PO PRN (06:15)
[2018-07-19] MEDS: PANTOPRAZOLE 40 MG TABLET PO SCH ×2 (06:16→18:36)
[2018-07-19] MEDS: FUROSEMIDE 40 MG/4 ML VIAL IV SCH ×2 (08:38→15:13)
[2018-07-19] MEDS: CARVEDILOL 3.125 MG TABLET PO SCH ×2 (08:39→22:46)
[2018-07-19] MEDS: DOCUSATE SODIUM 100 MG CAPSULE PO SCH ×2 (08:39→22:46)
[2018-07-19] MEDS: SPIRONOLACTONE 25 MG TABLET PO SCH ×2 (08:39→14:24)
[2018-07-19] MEDS: POTASSIUM CHLORIDE 20 MEQ TABLET PO PRN ×3 (08:39→18:56)
[2018-07-19] MEDS: ASPIRIN EC 81 MG TABLET PO SCH (08:39)
[2018-07-19] MEDS: TAMSULOSIN 0.4 MG CAPSULE PO SCH (08:40)
[2018-07-19] MEDS: CHOLECALCIFEROL 1,000 UNIT TABLET PO SCH (08:40)
[2018-07-19] MEDS: metOLazone 2.5 MG TABLET PO SCH (08:40)
[2018-07-19] MEDS: IRON (CARBONYL)/VIT C/B12/FA TABLET PO SCH (08:40)
[2018-07-19 10:01] LABS: ABG Base Excess 17.1 MMOL/L (-2.5-2.5); ABG HCO3 41.1 MMOL/L (20-26); ABG PCO2 58.1 MM HG (35-48); ABG PH 7.482 (7.35-7.45); ABG PO2 73.8 MM HG (80-95); ABG TCO2 39.7 MMOL/L (23-27); Allen Test Positive
[2018-07-19] MEDS: DICYCLOMINE 20 MG TABLET PO SCH (22:46)
[2018-07-19] MEDS: LATANOPROST 0.005% OPH SOLN 2.5 ML BOTTLE BOTH EYES SCH (22:46)
[2018-07-19] MEDS: SIMVASTATIN 20 MG TABLET PO SCH (22:47)
[2018-07-20] MEDS: ALBUTEROL/IPRATROPIUM 3 ML NEB RESP TX SCH ×4 (00:43→19:46)
[2018-07-20] MEDS: methylPREDNISolone SOD SUC 40 MG/1 ML VIAL IV SCH ×4 (01:55→20:45)
[2018-07-20 04:57] LABS: Albumin 2.9 G/DL (3.4-5.0); Bilirubin,Total 1.2 MG/DL (0.2-1.0); Potassium 3.3 MMOL/L (3.5-5.1); Total Protein 6.9 G/DL (6.4-8.3)
[2018-07-20 05:09] LABS: Hematocrit 31.2 VOL% (42.0-52.0); Immature Granulocytes % 0.4 %; Immature Granulocytes Absolute 0.03 #; Lymphocytes # 0.3 10*3/uL (1.4-4.0); Lymphocytes % 4.4 % (21.2-54.2); Mean Corpuscular HGB Conc 28.8 GM/DL (32-36); Mean Corpuscular Hemoglobin 22 PG (27-34); Mean Corpuscular Volume 75.9 FL (87-102); Monocytes # 0.4 10*3/uL (0.11-0.8); NRBC # 0.03 10*3/uL; Neutrophils # 6.1 10*3/uL (1.4-7.4); Neutrophils % 89.2 % (38.7-73.9); Platelet Count 104 T/CUMM (130-400); Red Blood Count 4.11 MC/CUMM (3.8-5.5); Red Cell Distribution Width 22.1 % (9.3-17.3); White Blood Count 6.8 T/CUMM (4-12)
[2018-07-20 05:31] LABS: Hypochromasia 2+; Lymphocytes 5 % (20-55); Ovalocytes Few; Platelet Estimate Decreased; Segmented Neutrophils 88 % (50-85); Total Cells Counted 100
[2018-07-20 05:32] LABS: Anisocytosis 2+; Microcytosis 2+; Polychromasia Few
[2018-07-20] MEDS: PANTOPRAZOLE 40 MG TABLET PO SCH ×2 (08:02→18:16)
[2018-07-20] MEDS: POTASSIUM CHLORIDE 20 MEQ TABLET PO PRN (08:02)
[2018-07-20] MEDS: FUROSEMIDE 40 MG/4 ML VIAL IV SCH ×2 (08:03→16:47)
[2018-07-20] MEDS: DOCUSATE SODIUM 100 MG CAPSULE PO SCH ×2 (08:28→21:04)
[2018-07-20] MEDS: SPIRONOLACTONE 25 MG TABLET PO SCH (08:28)
[2018-07-20] MEDS: TAMSULOSIN 0.4 MG CAPSULE PO SCH (08:28)
[2018-07-20] MEDS: metOLazone 2.5 MG TABLET PO SCH (08:28)
[2018-07-20] MEDS: ASPIRIN EC 81 MG TABLET PO SCH (08:28)
[2018-07-20] MEDS: CHOLECALCIFEROL 1,000 UNIT TABLET PO SCH (08:28)
[2018-07-20] MEDS: IRON (CARBONYL)/VIT C/B12/FA TABLET PO SCH (08:28)
[2018-07-20] MEDS: CARVEDILOL 3.125 MG TABLET PO SCH ×2 (08:28→21:04)
[2018-07-20] MEDS: SIMVASTATIN 20 MG TABLET PO SCH (21:04)
[2018-07-20] MEDS: DICYCLOMINE 20 MG TABLET PO SCH (21:04)
[2018-07-20] MEDS: LATANOPROST 0.005% OPH SOLN 2.5 ML BOTTLE BOTH EYES SCH (21:04)
[2018-07-21] MEDS: methylPREDNISolone SOD SUC 40 MG/1 ML VIAL IV SCH ×4 (02:10→18:30)
[2018-07-21 03:11] LABS: Hemoglobin 9.6 GM/DL (14.0-18.0); Immature Granulocytes % 0.5 %; Immature Granulocytes Absolute 0.03 #; Lymphocytes # 0.4 10*3/uL (1.4-4.0); Lymphocytes % 7.1 % (21.2-54.2); Mean Corpuscular HGB Conc 28.2 GM/DL (32-36); Mean Corpuscular Hemoglobin 22 PG (27-34); Mean Corpuscular Volume 76.5 FL (87-102); Monocytes # 0.3 10*3/uL (0.11-0.8); Monocytes % 4.9 % (1.7-12.7); NRBC # 0.02 10*3/uL; Neutrophils % 87.5 % (38.7-73.9); Platelet Count 113 T/CUMM (130-400); Red Blood Count 4.46 MC/CUMM (3.8-5.5); Red Cell Distribution Width 22.1 % (9.3-17.3); White Blood Count 5.8 T/CUMM (4-12)
[2018-07-21 03:17] LABS: Hematocrit 34.1 VOL% (42.0-52.0)
[2018-07-21] MEDS: ALBUTEROL/IPRATROPIUM 3 ML NEB RESP TX SCH ×4 (03:26→19:43)
[2018-07-21 04:09] LABS: Polychromasia Few
[2018-07-21 04:10] LABS: Platelet Estimate Decreased
[2018-07-21 04:11] LABS: Bilirubin,Total 1.1 MG/DL (0.2-1.0); Osmolality,Calculated 279.1 MOS/KG (273-304); Potassium 3.1 MMOL/L (3.5-5.1); Total Protein 7.1 G/DL (6.4-8.3)
[2018-07-21] MEDS: POTASSIUM CHLORIDE 20 MEQ TABLET PO PRN ×5 (04:46→17:47)
[2018-07-21] MEDS: PANTOPRAZOLE 40 MG TABLET PO SCH ×2 (06:02→18:30)
[2018-07-21] MEDS: IRON (CARBONYL)/VIT C/B12/FA TABLET PO SCH (08:49)
[2018-07-21] MEDS: metOLazone 2.5 MG TABLET PO SCH (08:49)
[2018-07-21] MEDS: ASPIRIN EC 81 MG TABLET PO SCH (08:49)
[2018-07-21] MEDS: CHOLECALCIFEROL 1,000 UNIT TABLET PO SCH (08:49)
[2018-07-21] MEDS: SPIRONOLACTONE 25 MG TABLET PO SCH (08:50)
[2018-07-21] MEDS: FUROSEMIDE 40 MG/4 ML VIAL IV SCH ×2 (08:50→16:52)
[2018-07-21] MEDS: DOCUSATE SODIUM 100 MG CAPSULE PO SCH ×2 (08:50→21:27)
[2018-07-21] MEDS: CARVEDILOL 3.125 MG TABLET PO SCH ×2 (08:50→21:27)
[2018-07-21] MEDS: TAMSULOSIN 0.4 MG CAPSULE PO SCH (08:50)
[2018-07-21] MEDS: LATANOPROST 0.005% OPH SOLN 2.5 ML BOTTLE BOTH EYES SCH (21:27)
[2018-07-21] MEDS: SIMVASTATIN 20 MG TABLET PO SCH (21:27)
[2018-07-21] MEDS: DICYCLOMINE 20 MG TABLET PO SCH (21:27)
[2018-07-22] MEDS: ALBUTEROL/IPRATROPIUM 3 ML NEB RESP TX SCH ×4 (00:19→19:48)
[2018-07-22] MEDS: methylPREDNISolone SOD SUC 40 MG/1 ML VIAL IV SCH ×4 (01:45→22:06)
[2018-07-22 05:47] LABS: Calcium 8.8 MG/DL (8.5-10.1); Osmolality,Calculated 274.5 MOS/KG (273-304); Potassium 3.5 MMOL/L (3.5-5.1)
[2018-07-22] MEDS: PANTOPRAZOLE 40 MG TABLET PO SCH ×2 (06:20→21:39)
[2018-07-22 06:57] LABS: Hematocrit 32.7 VOL% (42.0-52.0); Immature Granulocytes % 0.6 %; Immature Granulocytes Absolute 0.04 #; Lymphocytes # 0.3 10*3/uL (1.4-4.0); Lymphocytes % 4.7 % (21.2-54.2); Mean Corpuscular HGB Conc 28.7 GM/DL (32-36); Mean Corpuscular Hemoglobin 22 PG (27-34); Mean Corpuscular Volume 76.4 FL (87-102); Monocytes # 0.3 10*3/uL (0.11-0.8); Monocytes % 4.2 % (1.7-12.7); Neutrophils # 6.2 10*3/uL (1.4-7.4); Neutrophils % 90.5 % (38.7-73.9); Platelet Count 117 T/CUMM (130-400); Red Blood Count 4.28 MC/CUMM (3.8-5.5); Red Cell Distribution Width 22.1 % (9.3-17.3); White Blood Count 6.9 T/CUMM (4-12)
[2018-07-22 06:58] LABS: Hemoglobin 9.4 GM/DL (14.0-18.0)
[2018-07-22 07:01] LABS: Lymphocytes 3 % (20-55); Segmented Neutrophils 94 % (50-85); Total Cells Counted 100
[2018-07-22 07:02] LABS: Hypochromasia 1+; Microcytosis 1+; Platelet Estimate Decreased
[2018-07-22] MEDS: ASPIRIN EC 81 MG TABLET PO SCH (08:36)
[2018-07-22] MEDS: metOLazone 2.5 MG TABLET PO SCH (08:36)
[2018-07-22] MEDS: CARVEDILOL 3.125 MG TABLET PO SCH ×2 (08:36→21:39)
[2018-07-22] MEDS: POTASSIUM CHLORIDE 20 MEQ TABLET PO PRN ×2 (08:36→11:36)
[2018-07-22] MEDS: IRON (CARBONYL)/VIT C/B12/FA TABLET PO SCH (08:36)
[2018-07-22] MEDS: SPIRONOLACTONE 50 MG TABLET PO SCH (08:36)
[2018-07-22] MEDS: TAMSULOSIN 0.4 MG CAPSULE PO SCH (08:36)
[2018-07-22] MEDS: DOCUSATE SODIUM 100 MG CAPSULE PO SCH ×2 (08:36→21:39)
[2018-07-22] MEDS: CHOLECALCIFEROL 1,000 UNIT TABLET PO SCH (08:36)
[2018-07-22] MEDS: FUROSEMIDE 40 MG/4 ML VIAL IV SCH (08:37)
[2018-07-22] MEDS: FUROSEMIDE 80 MG TABLET PO SCH (15:35)
[2018-07-22] MEDS: DICYCLOMINE 20 MG TABLET PO SCH (21:38)
[2018-07-22] MEDS: LATANOPROST 0.005% OPH SOLN 2.5 ML BOTTLE BOTH EYES SCH (21:39)
[2018-07-22] MEDS: SIMVASTATIN 20 MG TABLET PO SCH (21:39)
[2018-07-23] MEDS: ALBUTEROL/IPRATROPIUM 3 ML NEB RESP TX SCH ×4 (01:23→19:44)
[2018-07-23] MEDS: methylPREDNISolone SOD SUC 40 MG/1 ML VIAL IV SCH ×4 (01:57→21:34)
[2018-07-23] MEDS: DOCUSATE SODIUM 100 MG CAPSULE PO SCH ×2 (08:01→21:35)
[2018-07-23] MEDS: FUROSEMIDE 80 MG TABLET PO SCH ×2 (08:02→15:54)
[2018-07-23] MEDS: SPIRONOLACTONE 50 MG TABLET PO SCH (08:02)
[2018-07-23] MEDS: metOLazone 2.5 MG TABLET PO SCH (08:02)
[2018-07-23] MEDS: CHOLECALCIFEROL 1,000 UNIT TABLET PO SCH (08:02)
[2018-07-23] MEDS: CARVEDILOL 3.125 MG TABLET PO SCH ×2 (08:02→21:35)
[2018-07-23] MEDS: ASPIRIN EC 81 MG TABLET PO SCH (08:02)
[2018-07-23] MEDS: IRON (CARBONYL)/VIT C/B12/FA TABLET PO SCH (08:02)
[2018-07-23] MEDS: TAMSULOSIN 0.4 MG CAPSULE PO SCH (08:02)
[2018-07-23] MEDS: PANTOPRAZOLE 40 MG TABLET PO SCH ×2 (08:02→21:35)
[2018-07-23] MEDS: DICYCLOMINE 20 MG TABLET PO SCH (21:35)
[2018-07-23] MEDS: LATANOPROST 0.005% OPH SOLN 2.5 ML BOTTLE BOTH EYES SCH (21:35)
[2018-07-23] MEDS: SIMVASTATIN 20 MG TABLET PO SCH (21:35)
[2018-07-24] MEDS: ALBUTEROL/IPRATROPIUM 3 ML NEB RESP TX SCH ×4 (00:28→19:19)
[2018-07-24] MEDS: methylPREDNISolone SOD SUC 40 MG/1 ML VIAL IV SCH ×4 (02:14→21:02)
[2018-07-24] MEDS: SPIRONOLACTONE 50 MG TABLET PO SCH (08:50)
[2018-07-24] MEDS: CHOLECALCIFEROL 1,000 UNIT TABLET PO SCH (08:51)
[2018-07-24] MEDS: IRON (CARBONYL)/VIT C/B12/FA TABLET PO SCH (08:51)
[2018-07-24] MEDS: DOCUSATE SODIUM 100 MG CAPSULE PO SCH ×2 (08:52→21:01)
[2018-07-24] MEDS: ASPIRIN EC 81 MG TABLET PO SCH (08:52)
[2018-07-24] MEDS: metOLazone 2.5 MG TABLET PO SCH (08:52)
[2018-07-24] MEDS: TAMSULOSIN 0.4 MG CAPSULE PO SCH (08:53)
[2018-07-24] MEDS: FUROSEMIDE 80 MG TABLET PO SCH ×2 (08:53→16:33)
[2018-07-24] MEDS: PANTOPRAZOLE 40 MG TABLET PO SCH ×2 (08:54→21:01)
[2018-07-24] MEDS: CARVEDILOL 3.125 MG TABLET PO SCH ×2 (10:14→21:01)
[2018-07-24] MEDS: POTASSIUM CHLORIDE 20 MEQ TABLET PO SCH (16:32)
[2018-07-24] MEDS: SIMVASTATIN 20 MG TABLET PO SCH (21:01)
[2018-07-24] MEDS: DICYCLOMINE 20 MG TABLET PO SCH (21:01)
[2018-07-24] MEDS: LATANOPROST 0.005% OPH SOLN 2.5 ML BOTTLE BOTH EYES SCH (21:02)
[2018-07-25] MEDS: ALBUTEROL/IPRATROPIUM 3 ML NEB RESP TX SCH ×4 (01:15→19:42)
[2018-07-25] MEDS: methylPREDNISolone SOD SUC 40 MG/1 ML VIAL IV SCH ×4 (01:38→21:21)
[2018-07-25] MEDS: metOLazone 2.5 MG TABLET PO SCH (08:26)
[2018-07-25] MEDS: ASPIRIN EC 81 MG TABLET PO SCH (08:26)
[2018-07-25] MEDS: IRON (CARBONYL)/VIT C/B12/FA TABLET PO SCH (08:26)
[2018-07-25] MEDS: FUROSEMIDE 80 MG TABLET PO SCH ×2 (08:26→16:19)
[2018-07-25] MEDS: CHOLECALCIFEROL 1,000 UNIT TABLET PO SCH (08:26)
[2018-07-25] MEDS: CARVEDILOL 3.125 MG TABLET PO SCH ×2 (08:26→21:21)
[2018-07-25] MEDS: TAMSULOSIN 0.4 MG CAPSULE PO SCH (08:26)
[2018-07-25] MEDS: SPIRONOLACTONE 50 MG TABLET PO SCH (08:26)
[2018-07-25] MEDS: POTASSIUM CHLORIDE 20 MEQ TABLET PO SCH (08:27)
[2018-07-25] MEDS: DOCUSATE SODIUM 100 MG CAPSULE PO SCH ×2 (08:27→21:21)
[2018-07-25] MEDS: PANTOPRAZOLE 40 MG TABLET PO SCH ×2 (08:27→21:21)
[2018-07-25] MEDS: LATANOPROST 0.005% OPH SOLN 2.5 ML BOTTLE BOTH EYES SCH (21:21)
[2018-07-25] MEDS: DICYCLOMINE 20 MG TABLET PO SCH (21:21)
[2018-07-25] MEDS: SIMVASTATIN 20 MG TABLET PO SCH (21:21)
[2018-07-26] MEDS: ALBUTEROL/IPRATROPIUM 3 ML NEB RESP TX SCH ×3 (00:33→12:00)
[2018-07-26] MEDS: methylPREDNISolone SOD SUC 40 MG/1 ML VIAL IV SCH ×2 (02:34→09:25)
[2018-07-26 05:59] LABS: Calcium 8.9 MG/DL (8.5-10.1); Osmolality,Calculated 279.5 MOS/KG (273-304); Osmolality,Calculated 282.4 MOS/KG (273-304); Potassium 4.3 MMOL/L (3.5-5.1)
[2018-07-26 06:12] LABS: Basophils % 0.1 % (0.0-0.8); Hematocrit 40.8 VOL% (42.0-52.0); Immature Granulocytes % 0.6 %; Immature Granulocytes Absolute 0.06 #; Lymphocytes # 0.4 10*3/uL (1.4-4.0); Lymphocytes % 3.8 % (21.2-54.2); Mean Corpuscular HGB Conc 28.9 GM/DL (32-36); Mean Corpuscular Hemoglobin 22 PG (27-34); Mean Corpuscular Volume 76.3 FL (87-102); Monocytes # 0.4 10*3/uL (0.11-0.8); Monocytes % 4.4 % (1.7-12.7); NRBC # 0.02 10*3/uL; Neutrophils % 91.1 % (38.7-73.9); Platelet Count 134 T/CUMM (130-400); Red Cell Distribution Width 23.1 % (9.3-17.3)
[2018-07-26 06:14] LABS: Red Blood Count 5.35 MC/CUMM (3.8-5.5); White Blood Count 9.9 T/CUMM (4-12)
[2018-07-26 06:15] LABS: Hemoglobin 11.8 GM/DL (14.0-18.0)
[2018-07-26 06:23] LABS: Band Neutrophils 1 % (0-10); Hypochromasia 1+; Lymphocytes 6 % (20-55); Microcytosis 1+; Platelet Estimate Adequate; Segmented Neutrophils 90 % (50-85); Total Cells Counted 100
[2018-07-26] MEDS: metOLazone 2.5 MG TABLET PO SCH (09:25)
[2018-07-26] MEDS: SPIRONOLACTONE 50 MG TABLET PO SCH (09:25)
[2018-07-26] MEDS: PANTOPRAZOLE 40 MG TABLET PO SCH (09:25)
[2018-07-26] MEDS: CHOLECALCIFEROL 1,000 UNIT TABLET PO SCH (09:25)
[2018-07-26] MEDS: IRON (CARBONYL)/VIT C/B12/FA TABLET PO SCH (09:25)
[2018-07-26] MEDS: DOCUSATE SODIUM 100 MG CAPSULE PO SCH (09:25)
[2018-07-26] MEDS: ASPIRIN EC 81 MG TABLET PO SCH (09:25)
[2018-07-26] MEDS: POTASSIUM CHLORIDE 20 MEQ TABLET PO SCH (09:25)
[2018-07-26] MEDS: FUROSEMIDE 80 MG TABLET PO SCH (09:25)
[2018-07-26] MEDS: CARVEDILOL 3.125 MG TABLET PO SCH (09:25)
[2018-07-26] MEDS: TAMSULOSIN 0.4 MG CAPSULE PO SCH (09:25)
[2018-07-26 11:12] VITALS: BP 111/64
== END 2018-07-26 12:00 | disposition home health service (06) | DRG 291 ==
LOC: EDUNIT# → EDBD → N.ED 14:26 → N.EDINP 17:28 → SUATTDRO 17:28 → N.CC 19:06 → N.TELEN 07-20 21:02
PROVIDERS: ADMIT Internal Medicine; ATTEND Internal Medicine

== ENCOUNTER 2020-05-15 00:51 | Observation (INO) ==
[2020-05-15 01:44] LABS: Hematocrit 32.9 VOL% (42.0-52.0); Hemoglobin 10.6 GM/DL (14.0-18.0); Immature Granulocytes % 0.6 %; Immature Granulocytes Absolute 0.03 #; Lymphocytes # 0.2 10*3/uL (1.4-4.0); Lymphocytes % 4.1 % (21.2-54.2); Mean Corpuscular HGB Conc 32.2 GM/DL (32-36); Mean Platelet Volume 11.3 FL (9.6-12.0); Monocytes % 11.8 % (1.7-12.7); Neutrophils % 83.5 % (38.7-73.9); Red Blood Count 3.87 MC/CUMM (3.8-5.5); Red Cell Distribution Width 15.4 % (9.3-17.3); White Blood Count 4.9 T/CUMM (4-12)
[2020-05-15] MEDS ORDERED: ONDANSETRON 4 MG/2 ML VIAL IV STA (01:49)
[2020-05-15] MEDS ORDERED: MORPHINE 4 MG/1 ML VIAL IV STA ×2 (01:49→01:53)
[2020-05-15] MEDS ORDERED: MORPHINE 4 MG/1 ML VIAL ONE (01:50)
[2020-05-15] MEDS ORDERED: ONDANSETRON 4 MG/2 ML VIAL ONE (01:50)
[2020-05-15] MEDS ORDERED: ONDANSETRON 4 MG/2 ML VIAL IV ONE (01:53)
[2020-05-15 02:16] LABS: Platelet Count 43 T/CUMM (130-400)
[2020-05-15 02:17] LABS: Albumin 3.6 G/DL (3.4-5.0); Bilirubin,Total 1.1 MG/DL (0.2-1.0); Calcium 8.6 MG/DL (8.5-10.1); Osmolality,Calculated 258.8 MOS/KG (273-304); Total Protein 7.5 G/DL (6.4-8.3)
[2020-05-15 02:18] LABS: Platelet Estimate Decreased
[2020-05-15 02:19] LABS: Acanthocytes Few; Anisocytosis Slight; Hypochromasia 2+; Macrocytosis Slight; Target Cells Few
[2020-05-15 03:44] LABS: Bacteria,Urine Occasional /HPF (Few); Bilirubin,Urine Negative (Negative); Blood, Urine Negative (Negative); Glucose,Urine (UA) Negative (Negative); Hyaline Casts,Urine 1 /LPF (0-3); Ketones,Urine Negative (Negative); Mucus,Urine Occasional /LPF (Occasional); Nitrite,Urine Negative (Negative); Protein,Urine 100 MG/DL; RBC,Urine 2 /HPF (0-4); Squamous Epithelial Cell,Urine Occasional /HPF (0-10); Urine Appearance CLEAR (Clear); Urine Color Yellow (Yellow); Urine Specific Gravity 1.034 (1.001-1.035); Urine Urobilinogen < 2.0 EU/DL (0.2-1.0); WBC,Urine 43 /HPF (0-6)
[2020-05-15] MEDS ORDERED: MEROPENEM 500 MG in SODIUM CHLORIDE 0.9% 100 ML IV ONE (03:50)
[2020-05-15] MEDS ORDERED: NICOTINE 21 MG/24 HR PATCH TRANSDERM PRN (05:23)
[2020-05-15] MEDS ORDERED: MORPHINE 4 MG/1 ML VIAL IV PRN (05:23)
[2020-05-15] MEDS ORDERED: diphenhydrAMINE CAP 25 MG CAPSULE PO PRN (05:23)
[2020-05-15] MEDS ORDERED: PROMETHAZINE 25 MG/1 ML VIAL IM PRN (05:23)
[2020-05-15] MEDS ORDERED: ACETAMINOPHEN 325 MG TABLET PO PRN (05:23)
[2020-05-15] MEDS ORDERED: guaiFENesin/DM ER 600-30 MG TABLET PO PRN (05:23)
[2020-05-15] MEDS ORDERED: hydrALAZINE 20 MG/1 ML VIAL IV PRN (05:23)
[2020-05-15] MEDS ORDERED: DEXTROSE 50% 25 GM/50 ML VIAL IV PRN (05:23)
[2020-05-15] MEDS ORDERED: GLUCAGON 1 MG VIAL IM PRN (05:23)
[2020-05-15] MEDS ORDERED: ONDANSETRON 4 MG/2 ML VIAL IV PRN (05:23)
[2020-05-15] MEDS ORDERED: SODIUM CHLORIDE 0.9% 1,000 ML IV SCH (05:30)
[2020-05-15] MEDS: cefTRIAXone 2,000 MG in SYRINGE 1 EACH IV SCH (08:47)
[2020-05-15] MEDS: ASPIRIN EC 81 MG TABLET PO SCH (08:47)
[2020-05-15] MEDS: carvediloL 3.125 MG TABLET PO SCH ×2 (08:47→21:33)
[2020-05-15] MEDS: TAMSULOSIN 0.4 MG CAPSULE PO SCH (08:47)
[2020-05-15] MEDS ORDERED: SODIUM PHOSPHATE ENEMA 133 ML BOTTLE RECTAL ONE (10:30)
[2020-05-15 12:25] LABS: Calcium 8.9 MG/DL (8.5-10.1); Osmolality,Calculated 259.4 MOS/KG (273-304)
[2020-05-15] MEDS ORDERED: SODIUM CHLORIDE 1 GM TABLET PO ONE (15:34)
[2020-05-15] MEDS ORDERED: MAGNESIUM HYDROXIDE SUSP 30 ML UDCUP PO ONE (21:00)
[2020-05-15] MEDS: SODIUM CHLORIDE 0.9% 1,000 ML IV SCH (21:33)
[2020-05-15] MEDS: SODIUM CHLORIDE 1 GM TABLET PO SCH (21:34)
[2020-05-16] MEDS: SODIUM CHLORIDE 0.9% 1,000 ML IV SCH (05:23)
[2020-05-16 05:55] LABS: Calcium 8.6 MG/DL (8.5-10.1); Osmolality,Calculated 260.4 MOS/KG (273-304)
[2020-05-16] MEDS ORDERED: LINACLOTIDE 145 MCG CAPSULE PO SCH (07:30)
[2020-05-16] MEDS ORDERED: SODIUM POLYSTYRENE SULFATE 15 GM/60 ML BOTTLE PO ONE (07:30)
[2020-05-16] MEDS: SODIUM CHLORIDE 1 GM TABLET PO SCH (08:47)
[2020-05-16] MEDS: ASPIRIN EC 81 MG TABLET PO SCH (08:47)
[2020-05-16] MEDS: TAMSULOSIN 0.4 MG CAPSULE PO SCH (08:47)
[2020-05-16] MEDS: carvediloL 3.125 MG TABLET PO SCH (08:47)
[2020-05-16] MEDS: cefTRIAXone 2,000 MG in SYRINGE 1 EACH IV SCH (08:59)
[2020-05-16] MEDS ORDERED: FINASTERIDE 5 MG TABLET PO SCH (09:00)
[2020-05-16 11:05] VITALS: BP 133/82
[2020-05-16 13:30] LABS: Calcium 8.8 MG/DL (8.5-10.1); Osmolality,Calculated 259.4 MOS/KG (273-304)
== END 2020-05-16 14:22 | disposition home or self-care (01) ==
LOC: N.ED 00:51 → N.EDINP 00:51 → SUATTDRO 05:23 → N.3E 06:04
PROVIDERS: ADMIT Internal Medicine Geriatric Medicine; ATTEND Internal Medicine

== ENCOUNTER 2020-05-28 14:35 | Inpatient (IN) ==
[2020-05-28] MEDS ORDERED: FUROSEMIDE 40 MG/4 ML VIAL IV STA (15:21)
[2020-05-28 15:25] LABS: Hematocrit 31.4 VOL% (42.0-52.0); Hemoglobin 10.5 GM/DL (14.0-18.0); Immature Granulocytes % 0.6 %; Immature Granulocytes Absolute 0.02 #; Lymphocytes # 0.3 10*3/uL (1.4-4.0); Lymphocytes % 6.9 % (21.2-54.2); Mean Corpuscular HGB Conc 33.4 GM/DL (32-36); Mean Platelet Volume 10.7 FL (9.6-12.0); Monocytes % 19.7 % (1.7-12.7); Neutrophils % 72.8 % (38.7-73.9); Platelet Count 44 T/CUMM (130-400); Red Blood Count 3.83 MC/CUMM (3.8-5.5); Red Cell Distribution Width 15.2 % (9.3-17.3); White Blood Count 3.6 T/CUMM (4-12)
[2020-05-28 15:44] LABS: Albumin 3.5 G/DL (3.4-5.0); Bilirubin,Total 1.2 MG/DL (0.2-1.0); Calcium 8.4 MG/DL (8.5-10.1); Osmolality,Calculated 239.8 MOS/KG (273-304); Potassium 5.3 MMOL/L (3.5-5.1); Total Protein 7.4 G/DL (6.4-8.3)
[2020-05-28] MEDS ORDERED: ONDANSETRON 4 MG/2 ML VIAL IV PRN (16:47)
[2020-05-28] MEDS ORDERED: DEXTROSE 50% 25 GM/50 ML VIAL IV PRN (16:47)
[2020-05-28] MEDS ORDERED: GLUCAGON 1 MG VIAL IM PRN (16:47)
[2020-05-28] MEDS ORDERED: ACETAMINOPHEN 325 MG TABLET PO PRN (16:47)
[2020-05-28 16:52] LABS: Lymphocytes 5 % (20-55); Microcytosis 1+; Ovalocytes 1+; Polychromasia 1+; Segmented Neutrophils 83 % (50-85); Total Cells Counted 100
[2020-05-28 16:53] LABS: Anisocytosis 1+; Platelet Estimate Adequate; Toxic Granulation 1+
[2020-05-28] MEDS ORDERED: ENOXAPARIN 30 MG/0.3 ML SYRINGE SUBCUT SCH (17:00)
[2020-05-28] MEDS: SODIUM CHLORIDE 0.9% 1,000 ML IV SCH (17:04)
[2020-05-28 17:13] LABS: Bacteria,Urine Occasional /HPF (Few); Bilirubin,Urine Negative (Negative); Blood, Urine Negative (Negative); Glucose,Urine (UA) Negative (Negative); Hyaline Casts,Urine 7 /LPF (0-3); Ketones,Urine Negative (Negative); Mucus,Urine Occasional /LPF (Occasional); Nitrite,Urine Negative (Negative); Protein,Urine 30 MG/DL; RBC,Urine 2 /HPF (0-4); Squamous Epithelial Cell,Urine Occasional /HPF (0-10); Urine Appearance CLEAR (Clear); Urine Color Yellow (Yellow); Urine Specific Gravity 1.014 (1.001-1.035); Urine Urobilinogen < 2.0 EU/DL (0.2-1.0); WBC,Urine 3 /HPF (0-6)
[2020-05-28] MEDS ORDERED: INFLUENZA VIRUS VACCINE 0.5 ML SYRINGE IM ONE (18:04)
[2020-05-28 18:30] LABS: Calcium 8.6 MG/DL (8.5-10.1); Osmolality,Calculated 239.8 MOS/KG (273-304); Potassium 4.8 MMOL/L (3.5-5.1)
[2020-05-28] MEDS ORDERED: PANTOPRAZOLE 40 MG TABLET PO SCH (21:00)
[2020-05-28] MEDS: FAMOTIDINE 20 MG TABLET PO SCH (21:13)
[2020-05-28] MEDS: GABAPENTIN 300 MG CAPSULE PO SCH (21:13)
[2020-05-29 01:30] LABS: Calcium 8.5 MG/DL (8.5-10.1); Osmolality,Calculated 240.8 MOS/KG (273-304)
[2020-05-29] MEDS: SODIUM CHLORIDE 0.9% 1,000 ML IV SCH ×2 (05:16→18:19)
[2020-05-29 06:32] LABS: Hematocrit 29.7 VOL% (42.0-52.0); Hemoglobin 10.1 GM/DL (14.0-18.0); Immature Granulocytes % 0.9 %; Immature Granulocytes Absolute 0.03 #; Lymphocytes # 0.3 10*3/uL (1.4-4.0); Lymphocytes % 7.9 % (21.2-54.2); Mean Corpuscular Volume 79.2 FL (87-102); Mean Platelet Volume 10.6 FL (9.6-12.0); Monocytes % 20.1 % (1.7-12.7); Neutrophils % 71.1 % (38.7-73.9); Red Blood Count 3.75 MC/CUMM (3.8-5.5); White Blood Count 3.3 T/CUMM (4-12)
[2020-05-29 06:35] LABS: Platelet Count 42 T/CUMM (130-400)
[2020-05-29 06:53] LABS: Albumin 3.1 G/DL (3.4-5.0); Bilirubin,Direct 0.44 MG/DL (0.0-0.20); Bilirubin,Indirect 0.9 MG/DL (0.0-1.0); Bilirubin,Total 1.3 MG/DL (0.2-1.0); Calcium 8.5 MG/DL (8.5-10.1); Osmolality,Calculated 242.6 MOS/KG (273-304); Potassium 5.1 MMOL/L (3.5-5.1); Total Protein 7.2 G/DL (6.4-8.3)
[2020-05-29 07:02] LABS: Hypochromasia 1+; Lymphocytes 8 % (20-55); Microcytosis 1+; Ovalocytes Slight; Platelet Estimate Decreased; Segmented Neutrophils 73 % (50-85); Total Cells Counted 100
[2020-05-29] MEDS: FAMOTIDINE 20 MG TABLET PO SCH ×2 (09:50→20:34)
[2020-05-29] MEDS: FINASTERIDE 5 MG TABLET PO SCH (09:50)
[2020-05-29] MEDS: FERROUS SULFATE 325 MG TABLET PO SCH ×2 (15:38→20:34)
[2020-05-29] MEDS: SIMVASTATIN 10 MG TABLET PO SCH (20:33)
[2020-05-29] MEDS: GABAPENTIN 300 MG CAPSULE PO SCH (20:34)
[2020-05-29] MEDS: LATANOPROST 0.005% OPH SOLN 2.5 ML BOTTLE BOTH EYES SCH (20:34)
[2020-05-30 05:28] LABS: Albumin 3.3 G/DL (3.4-5.0); Calcium 8.5 MG/DL (8.5-10.1); Osmolality,Calculated 241.6 MOS/KG (273-304); Potassium 4.8 MMOL/L (3.5-5.1)
[2020-05-30] MEDS: SODIUM CHLORIDE 0.9% 1,000 ML IV SCH ×2 (05:33→20:15)
[2020-05-30] MEDS: FAMOTIDINE 20 MG TABLET PO SCH ×2 (09:37→20:14)
[2020-05-30] MEDS: CHOLECALCIFEROL 1,000 UNIT TABLET PO SCH (09:37)
[2020-05-30] MEDS: FINASTERIDE 5 MG TABLET PO SCH (09:37)
[2020-05-30] MEDS: ASPIRIN EC 81 MG TABLET PO SCH (09:37)
[2020-05-30] MEDS: TAMSULOSIN 0.4 MG CAPSULE PO SCH (09:37)
[2020-05-30] MEDS: FERROUS SULFATE 325 MG TABLET PO SCH ×3 (09:37→20:14)
[2020-05-30 11:25] LABS: Osmolality, Serum 247 mOsm/kg (275 - 295)
[2020-05-30 11:39] LABS: Osmolality, Urine 418 mOsm/kg (150 - 1150)
[2020-05-30] MEDS: GABAPENTIN 300 MG CAPSULE PO SCH (20:14)
[2020-05-30] MEDS: SIMVASTATIN 10 MG TABLET PO SCH (20:14)
[2020-05-30] MEDS: LATANOPROST 0.005% OPH SOLN 2.5 ML BOTTLE BOTH EYES SCH (20:20)
[2020-05-31 05:50] LABS: Eosinophils % 0.6 % (0.00-10.9); Hematocrit 30.9 VOL% (42.0-52.0); Hemoglobin 10.6 GM/DL (14.0-18.0); Immature Granulocytes % 0.6 %; Immature Granulocytes Absolute 0.02 #; Lymphocytes # 0.3 10*3/uL (1.4-4.0); Lymphocytes % 9.3 % (21.2-54.2); Mean Corpuscular HGB Conc 34.3 GM/DL (32-36); Mean Corpuscular Volume 79.8 FL (87-102); Mean Platelet Volume 11.5 FL (9.6-12.0); Monocytes % 19.7 % (1.7-12.7); NRBC # 0.04 10*3/uL; Neutrophils % 69.8 % (38.7-73.9); Red Blood Count 3.87 MC/CUMM (3.8-5.5); Red Cell Distribution Width 15.1 % (9.3-17.3); White Blood Count 3.6 T/CUMM (4-12)
[2020-05-31 05:56] LABS: Platelet Count 42 T/CUMM (130-400)
[2020-05-31 06:11] LABS: Anisocytosis 2+; Band Neutrophils 4 % (0-10); Burr Cells Few; Lymphocytes 10 % (20-55); Macrocytosis 1+; Nucleated Red Blood Cells 1 (0-5); Ovalocytes Few; Platelet Estimate Decreased; Segmented Neutrophils 71 % (50-85); Target Cells Few; Total Cells Counted 100
[2020-05-31 06:12] LABS: Hypochromasia Slight
[2020-05-31 06:14] LABS: Free T4 (Free Thyroxine) 1.28 NG/DL (0.76-1.46); Thyroid Stimulating Hormone 1.29 uIU/ml (0.358-3.74)
[2020-05-31 06:20] LABS: Calcium 7.9 MG/DL (8.5-10.1)
[2020-05-31] MEDS: ASPIRIN EC 81 MG TABLET PO SCH (08:45)
[2020-05-31] MEDS: FERROUS SULFATE 325 MG TABLET PO SCH ×3 (08:45→20:38)
[2020-05-31] MEDS: FAMOTIDINE 20 MG TABLET PO SCH ×2 (08:45→20:38)
[2020-05-31] MEDS: FINASTERIDE 5 MG TABLET PO SCH (08:45)
[2020-05-31] MEDS: SODIUM CHLORIDE 0.9% 1,000 ML IV SCH ×2 (08:45→20:38)
[2020-05-31] MEDS: TAMSULOSIN 0.4 MG CAPSULE PO SCH (08:46)
[2020-05-31] MEDS: CHOLECALCIFEROL 1,000 UNIT TABLET PO SCH (08:46)
[2020-05-31] MEDS ORDERED: TUBERCULIN SKIN TEST 0.1 ML SYRINGE INTRADERM ONE (10:27)
[2020-05-31] MEDS: LATANOPROST 0.005% OPH SOLN 2.5 ML BOTTLE BOTH EYES SCH (20:38)
[2020-05-31] MEDS: SIMVASTATIN 10 MG TABLET PO SCH (20:38)
[2020-05-31] MEDS: GABAPENTIN 300 MG CAPSULE PO SCH (20:38)
[2020-06-01 05:59] LABS: Calcium 8.3 MG/DL (8.5-10.1); Osmolality,Calculated 241.3 MOS/KG (273-304); Potassium 4.6 MMOL/L (3.5-5.1)
[2020-06-01] MEDS: SODIUM CHLORIDE 0.9% 1,000 ML IV SCH ×2 (08:20→22:03)
[2020-06-01] MEDS: ASPIRIN EC 81 MG TABLET PO SCH (08:20)
[2020-06-01] MEDS: TAMSULOSIN 0.4 MG CAPSULE PO SCH (08:20)
[2020-06-01] MEDS: FERROUS SULFATE 325 MG TABLET PO SCH ×3 (08:20→20:31)
[2020-06-01] MEDS: CHOLECALCIFEROL 1,000 UNIT TABLET PO SCH (08:20)
[2020-06-01] MEDS: FAMOTIDINE 20 MG TABLET PO SCH ×2 (08:20→20:31)
[2020-06-01] MEDS: FINASTERIDE 5 MG TABLET PO SCH (08:20)
[2020-06-01] MEDS: GABAPENTIN 300 MG CAPSULE PO SCH (20:31)
[2020-06-01] MEDS: SIMVASTATIN 10 MG TABLET PO SCH (20:32)
[2020-06-01] MEDS: LATANOPROST 0.005% OPH SOLN 2.5 ML BOTTLE BOTH EYES SCH (20:32)
[2020-06-02] MEDS: CHOLECALCIFEROL 1,000 UNIT TABLET PO SCH (08:10)
[2020-06-02] MEDS: FERROUS SULFATE 325 MG TABLET PO SCH ×3 (08:10→21:45)
[2020-06-02] MEDS: ASPIRIN EC 81 MG TABLET PO SCH (08:10)
[2020-06-02] MEDS: FINASTERIDE 5 MG TABLET PO SCH (08:10)
[2020-06-02] MEDS: TAMSULOSIN 0.4 MG CAPSULE PO SCH (08:10)
[2020-06-02] MEDS: FAMOTIDINE 20 MG TABLET PO SCH ×2 (08:10→21:45)
[2020-06-02] MEDS: TOLVAPTAN 15 MG TABLET PO SCH (08:10)
[2020-06-02] MEDS: SODIUM CHLORIDE 0.9% 1,000 ML IV SCH (10:33)
[2020-06-02 13:35] LABS: Calcium 8.2 MG/DL (8.5-10.1); Osmolality,Calculated 252.5 MOS/KG (273-304); Potassium 4.7 MMOL/L (3.5-5.1)
[2020-06-02] MEDS: SIMVASTATIN 10 MG TABLET PO SCH (21:45)
[2020-06-02] MEDS: GABAPENTIN 300 MG CAPSULE PO SCH (21:45)
[2020-06-02] MEDS: LATANOPROST 0.005% OPH SOLN 2.5 ML BOTTLE BOTH EYES SCH (21:46)
[2020-06-03] MEDS: SODIUM CHLORIDE 0.9% 1,000 ML IV SCH ×2 (01:20→13:46)
[2020-06-03 07:01] LABS: Calcium 8.7 MG/DL (8.5-10.1); Osmolality,Calculated 262.7 MOS/KG (273-304); Potassium 4.6 MMOL/L (3.5-5.1)
[2020-06-03] MEDS: FINASTERIDE 5 MG TABLET PO SCH (08:44)
[2020-06-03] MEDS: TAMSULOSIN 0.4 MG CAPSULE PO SCH (08:44)
[2020-06-03] MEDS: CHOLECALCIFEROL 1,000 UNIT TABLET PO SCH (08:44)
[2020-06-03] MEDS: ASPIRIN EC 81 MG TABLET PO SCH (08:44)
[2020-06-03] MEDS: TOLVAPTAN 15 MG TABLET PO SCH (08:45)
[2020-06-03] MEDS: FERROUS SULFATE 325 MG TABLET PO SCH ×2 (08:45→16:36)
[2020-06-03] MEDS: FAMOTIDINE 20 MG TABLET PO SCH (08:45)
[2020-06-03] MEDS ORDERED: FUROSEMIDE 40 MG TABLET PO SCH (16:00)
[2020-06-03 19:40] VITALS: BP 136/70
== END 2020-06-03 20:02 | DRG 640 ==
LOC: EDUNIT# → EDBD → N.ED 14:35 → N.TELES 14:35 → SUATTDRO 16:47 → N.TELES 17:32 → SUATTDRO 05-31 10:36
PROVIDERS: ADMIT Internal Medicine Geriatric Medicine; ATTEND Emergency Medicine